=== PATIENT | male | born 1955 ===

== ENCOUNTER 2017-11-15 12:41 | Inpatient (IN) | payer OTHER, MEDICAID, SELFPAY ==
[2017-11-15] VITALS (11 sets, daily range): BP systolic 101–131; BP diastolic 69–90; PULSE 90–115; RESP 16–20; TEMP 36.7–37; O2SAT 96–98; BMI 25.8
--- NOTE | 2017-11-15 13:58 | ED.WOUNDLAC ---
HPI - Wound/Laceration <ELIAS Franco - Last Filed: 11/15/17 21:36> General Chief Complaint: Wound/Laceration Stated Complaint: STATES LESSION ON RIGHT SIDE UPPER BACK Time Seen by Provider: 11/15/17 13:42 History of Present Illness HPI narrative: 62-year-old male here for complaint of swelling and purulent drainage from his right chest wall. 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 Last episode was abscess to the chest wall was in June where he was hospitalized. He was seen by surgery with the area incised and drained by Dr. Calderon. Patient states over the last week he has noticed increased pain and swelling he is also reports having chills and fever. Positive p.o. intake. He reports started draining earlier today. He denies any trauma to the area. No other concerns or complaints at this time. Related Data Home Medications Medication Instructions Recorded Confirmed ibuprofen 200 mg PO PRN #0 10/26/16 multivitamin [Multiple Vitamins] 1 tab PO QDAY #0 10/26/16 ascorbic acid (vitamin C) PO QDAY #0 06/06/17 gabapentin 100 mg PO QDAY #0 06/06/17 gabapentin 200 mg PO BID #0 06/06/17 gabapentin [Neurontin] 400 mg PO HS #0 06/06/17 ledipasvir-sofosbuvir [Harvoni] 1 tab PO #0 06/06/17 melatonin 10 mg PO HS #0 06/06/17 Previous Rx's Medication Instructions Recorded albuterol sulfate [Proventil HFA] 2 puff INH QID #1 inh 12/21/16 amitriptyline 0 PO HS #90 tab 12/21/16 metoprolol tartrate 50 mg PO QDAY #90 tab 12/21/16 oxycodone 1 tab PO TID #90 tab 01/18/17 oxycodone 5 - 10 mg PO Q4HP PRN #40 tab 06/15/17 sulfamethoxazole-trimethoprim 1 tab PO BID #12 tab 06/15/17 Allergies Allergy/AdvReac Type Severity Reaction Status Date / Time prednisone [PREDNISONE] Allergy Severe SUICIDAL Verified 11/15/17 12:57 THOUGHTS AND SEVERE MOOD CHANGE Review of Systems <ELIAS Franco - Last Filed: 11/15/17 21:36> Constitutional Reports chills, Denies fatigue, Reports fever(s), Denies lethargy and Denies weakness Eyes Denies change in vision, Denies eye discharge, Denies irritation and Denies loss of vision ENT Ears, Nose, Mouth, and Throat: Denies change in voice, Denies neck pain and Denies sore throat Cardiovascular Denies dyspnea and Denies dyspnea on exertion Respiratory Denies cough, Denies dyspnea, Denies dyspnea on exertion and Denies wheezing Comments: Abscess to chest wall Gastrointestinal Gastrointestinal: Denies abdominal pain, Denies change in bowel habits, Denies diarrhea, Denies nausea and Denies vomiting Genitourinary Denies hematuria, Denies flank pain, Denies urinary incontinence and Denies urinary urgency Musculoskeletal Denies neck pain Integumentary/Breasts Reports furuncle Neurologic Denies confusion, Denies loss of vision and Denies weakness Psychiatric Denies anxiety, Denies confusion, Denies depression, Denies homicidal ideation and Denies suicidal ideation Endocrine Denies fatigue and Denies flushing Allergic/Immunologic Denies wheezing Exam <Chilo Arevalo [facility] - Last Filed: 11/15/17 21:36> Initial Vital Signs Initial Vital Signs: Vital Signs Temperature 98.6 F 11/15/17 12:57 Pulse Rate 115 H 11/15/17 12:57 Respiratory Rate 17 11/15/17 12:57 Blood Pressure 118/87 H 11/15/17 12:57 Pulse Oximetry 97 11/15/17 12:57 Const General: cooperative and well developed Nutritional Appearance: well nourished Orientation: alert, awake, oriented x3 and not confused [facility] Mouth: oral mucosae normal and moist mucous membranes Eyes Conjunctivae: conjunctivae normal Sclera: sclerae normal Pupils: PERRL EOM: EOM intact bilaterally Chest Other: Right chest wall with area of swelling and fluctuance to the lateral chest wall approximately nipple line approximately 20 cm x 10 cm. Small open lesion to a center of the area of swelling and drainage purulent material. Resp Effort & Inspection: normal respiratory effort, able to speak in complete sentences, no respiratory distress and no use of accessory muscles Auscultation: clear to auscultation bilaterally, no rales, no rhonchi and no wheezes Cardio Rate: regular rate Rhythm: regular rhythm Heart Sounds: no click, no gallops, no murmurs and no rubs Pulses: normal peripheral pulses Neuro General: alert, oriented x3, gait normal and no focal motor deficits Speech: speech normal <Anali Frias DO - Last Filed: 11/16/17 08:36> Initial Vital Signs Initial Vital Signs: Vital Signs Temperature 98.6 F 11/15/17 12:57 Pulse Rate 115 H 11/15/17 12:57 Respiratory Rate 17 11/15/17 12:57 Blood Pressure 118/87 H 11/15/17 12:57 Pulse Oximetry 97 11/15/17 12:57 Course <ELIAS Franco - Last Filed: 11/15/17 21:36> Orders Ordered: Acetaminophen (Tylenol) 650 mg PO Q6H PRN PRN Reason: As Needed for Fever/Mild Pain Last Admin: 11/16/17 00:48 Dose: 650 mg Enoxaparin Sodium (Lovenox) 40 mg SUBCUT DAILY [facility] Hydromorphone HCl (Dilaudid) 1 mg IV Q4HR PRN PRN Reason: Pain, Moderate (4-6) Last Admin: 11/16/17 06:57 Dose: 1 mg Admin: 11/16/17 03:11 Dose: 1 mg Admin: 11/15/17 23:05 Dose: 1 mg Sodium Chloride (Normal Saline 0.45%) 1,000 mls @ 100 mls/hr IV CONT [facility] Last Admin: 11/15/17 22:12 Dose: 100 mls/hr Vancomycin HCl/Dextrose (Vancomycin) 1,000 mg in 200 mls @ 200 mls/hr IV Q8H [facility] Last Admin: 11/16/17 01:02 Dose: 200 mls/hr Magnesium Hydroxide (Milk Of Magnesia) 30 ml PO DAILY PRN PRN Reason: Constipation Ondansetron HCl (Zofran) 4 mg IV Q8H PRN PRN Reason: Nausea And Vomiting Vancomycin HCl (Vancomycin Per Pharmacy) 1 request MISC NOW ONE Stop: 11/15/17 21:39 Discontinued Medications Hydromorphone HCl (Dilaudid) 0.5 mg IV NOW ONE Stop: 11/15/17 14:15 Last Admin: 11/15/17 14:39 Dose: 0.5 mg Hydromorphone HCl (Dilaudid) 0.5 mg IV NOW ONE Stop: 11/15/17 17:34 Last Admin: 11/15/17 17:37 Dose: 0.5 mg Sodium Chloride (Normal Saline 0.9%) 1,000 mls @ 125 mls/hr IV CONT [facility] Last Infusion: 11/15/17 19:24 Dose: 0 mls/hr Admin: 11/15/17 14:40 Dose: 125 mls/hr Vancomycin HCl 1,250 mg/ (Sodium Chloride) 250 mls @ 250 mls/hr IV NOW ONE Stop: 11/15/17 15:03 Last Infusion: 11/15/17 17:39 Dose: 0 mls/hr Admin: 11/15/17 16:02 Dose: 250 mls/hr Piperacillin/Tazobactam/Dextrose (Zosyn) 3.375 gm in 50 mls @ 100 mls/hr IV NOW ONE Stop: 11/15/17 15:31 Last Infusion: 11/15/17 15:53 Dose: 0 mls/hr Admin: 11/15/17 15:25 Dose: 100 mls/hr Sodium Chloride (Normal Saline 0.9%) 1,000 mls @ 125 mls/hr IV CONT [facility] Last Admin: 11/15/17 22:17 Dose: Ondansetron HCl (Zofran) 4 mg IV Q4HR PRN PRN Reason: Nausea And Vomiting Vital Signs - 8 hr 11/16/17 01:00 11/16/17 04:07 Temperature 97.7 F Pulse Rate 90 Respiratory Rate 17 Blood Pressure 104/63 Pulse Oximetry 96 98 <Anali Frias, - Last Filed: 11/16/17 08:36> Orders Ordered: Acetaminophen (Tylenol) 650 mg PO Q6H PRN PRN Reason: As Needed for Fever/Mild Pain Last Admin: 11/16/17 00:48 Dose: 650 mg Enoxaparin Sodium (Lovenox) 40 mg SUBCUT DAILY [facility] Hydromorphone HCl (Dilaudid) 1 mg IV Q4HR PRN PRN Reason: Pain, Moderate (4-6) Last Admin: 11/16/17 06:57 Dose: 1 mg Admin: 11/16/17 03:11 Dose: 1 mg Admin: 11/15/17 23:05 Dose: 1 mg Sodium Chloride (Normal Saline 0.45%) 1,000 mls @ 100 mls/hr IV CONT [facility] Last Admin: 11/15/17 22:12 Dose: 100 mls/hr Vancomycin HCl/Dextrose (Vancomycin) 1,000 mg in 200 mls @ 200 mls/hr IV Q8H [facility] Last Admin: 11/16/17 01:02 Dose: 200 mls/hr Magnesium Hydroxide (Milk Of Magnesia) 30 ml PO DAILY PRN PRN Reason: Constipation Ondansetron HCl (Zofran) 4 mg IV Q8H PRN PRN Reason: Nausea And Vomiting Vancomycin HCl (Vancomycin Per Pharmacy) 1 request MISC NOW ONE Stop: 11/15/17 21:39 Discontinued Medications Hydromorphone HCl (Dilaudid) 0.5 mg IV NOW ONE Stop: 11/15/17 14:15 Last Admin: 11/15/17 14:39 Dose: 0.5 mg Hydromorphone HCl (Dilaudid) 0.5 mg IV NOW ONE Stop: 11/15/17 17:34 Last Admin: 11/15/17 17:37 Dose: 0.5 mg Sodium Chloride (Normal Saline 0.9%) 1,000 mls @ 125 mls/hr IV CONT [facility] Last Infusion: 11/15/17 19:24 Dose: 0 mls/hr Admin: 11/15/17 14:40 Dose: 125 mls/hr Vancomycin HCl 1,250 mg/ (Sodium Chloride) 250 mls @ 250 mls/hr IV NOW ONE Stop: 11/15/17 15:03 Last Infusion: 11/15/17 17:39 Dose: 0 mls/hr Admin: 11/15/17 16:02 Dose: 250 mls/hr Piperacillin/Tazobactam/Dextrose (Zosyn) 3.375 gm in 50 mls @ 100 mls/hr IV NOW ONE Stop: 11/15/17 15:31 Last Infusion: 11/15/17 15:53 Dose: 0 mls/hr Admin: 11/15/17 15:25 Dose: 100 mls/hr Sodium Chloride (Normal Saline 0.9%) 1,000 mls @ 125 mls/hr IV CONT [facility] Last Admin: 11/15/17 22:17 Dose: Ondansetron HCl (Zofran) 4 mg IV Q4HR PRN PRN Reason: Nausea And Vomiting Vital Signs - 8 hr 11/16/17 01:00 11/16/17 04:07 Temperature 97.7 F Pulse Rate 90 Respiratory Rate 17 Blood Pressure 104/63 Pulse Oximetry 96 98 MDM - Wound/Laceration <ELIAS Franco - Last Filed: 11/15/17 21:36> Lab Data Result diagrams: 11/15/17 13:40 11/15/17 13:40 Lab Results 11/15/17 11/15/17 11/15/17 Range/Units 13:40 13:40 13:40 WBC 20.7 H (4.5-11.0) X10^3/uL RBC 5.31 (4.5-5.9) X10^6/uL Hgb 15.7 (13.5-17.5) g/dL Hct 45.4 (41-53) % MCV 85.5 (80-100) fL MCH 29.7 (26-34) PG MCHC 34.7 (30-36) % RDW 13.6 (11.6-14.8) % Plt Count 259 (150-400) X10^3/uL Neut % (Auto) 85.2 H (50-75) % Lymph % (Auto) 7.9 L (25-40) % Bremer % (Auto) 6.2 (3-14) % Eos % (Auto) 0.0 L (2-4) % Baso % (Auto) 0.7 (0-2) % Neut # (Auto) 17546 H (2505-7141) /uL Sodium 135 L (137-145) mmol/L Potassium 4.4 (3.4-5.1) mmol/L Chloride 98 (98-107) mmol/L Carbon Dioxide 25 (22-32) mmol/L BUN 15 (9-20) mg/dL Creatinine 0.90 (0.66-1.25) mg/dL Estimated GFR > 60.0 (>60) mL/min BUN/Creatinine Ratio 16.7 (6-22) Glucose 117 H (80-110) mg/dL Lactate (0.7-2.1) mmol/L Calcium 9.9 (8.4-10.2) mg/dL Total Bilirubin 1.0 (0.2-1.3) mg/dL Procalcitonin 0.32 (<0.5) ng/mL 11/15/17 Range/Units 13:40 WBC (4.5-11.0) X10^3/uL RBC (4.5-5.9) X10^6/uL Hgb (13.5-17.5) g/dL Hct (41-53) % MCV (80-100) fL MCH (26-34) PG MCHC (30-36) % RDW (11.6-14.8) % Plt Count (150-400) X10^3/uL Neut % (Auto) (50-75) % Lymph % (Auto) (25-40) % Bremer % (Auto) (3-14) % Eos % (Auto) (2-4) % Baso % (Auto) (0-2) % Neut # (Auto) (0667-7961) /uL Sodium (137-145) mmol/L Potassium (3.4-5.1) mmol/L Chloride (98-107) mmol/L Carbon Dioxide (22-32) mmol/L BUN (9-20) mg/dL Creatinine (0.66-1.25) mg/dL Estimated GFR (>60) mL/min BUN/Creatinine Ratio (6-22) Glucose (80-110) mg/dL Lactate 1.3 (0.7-2.1) mmol/L Calcium (8.4-10.2) mg/dL Total Bilirubin (0.2-1.3) mg/dL Procalcitonin (<0.5) ng/mL Imaging Data CT scan - chest: Radiologist's impression: PROCEDURE: CT CHEST W CON INDICATIONS: Swelling to right chest wall history of incisional abscess TECHNIQUE: After the administration of intravenous contrast, 5 mm thick sections acquired from the pulmonary apices to the posterior costophrenic angles. 7 mm thick coronal and sagittal MIP reformats were acquired. For radiation dose reduction, the following was used: automated exposure control, adjustment of mA and/or kV according to patient size. COMPARISON: [facility], US, CHEST, 06/09/2017, 11:03. [facility] Ultrasound, US, US ABDOMEN COMPLETE, 09/05/2017, 11:23. [facility], CT, THORAX WITH CONTRAST, 06/06/2017, 17:20. [facility], CT, THORAX WITH CONTRAST, 12/02/2016, 10:20. [facility], CT, THORAX WITH CONTRAST, 07/04/2013, 11:59. FINDINGS: Image quality: Diagnostic. Lungs and pleura: A small right-sided pleural effusion is identified with corresponding to pleural thickening within the posterior costophrenic angle. Cystic bronchiectasis within the right upper lobe is similar to the previous examination. There is no focal consolidation or pneumothorax. Paraseptal emphysematous changes appear to be present within the bilateral lung apices. No lung mass or definite pulmonary nodule is evident. Mediastinum: Heart size is normal. No pericardial effusion. Coronary artery atherosclerosis is present. There is an ascending thoracic aortic aneurysm identified, measuring up to approximately 4.5 cm in AP dimension (image 30, series 2), which is unchanged since 2013. The main pulmonary arterial trunk is not enlarged. No mediastinal or hilar adenopathy by size criteria. Esophagus is normal in caliber. No hiatal hernia. Bones and chest wall: Prominent enlargement and disuse heterogeneity is identified involving the right serratus anterior, inferior margin of the teres major, and inferior margin of the right latissimus dorsi muscles. Phlegmonous soft tissue changes within this region are identified that extends to the level of the skin. There appeared to be scattered small irregular loculated fluid collections within this region, which are grossly similar to the examination from 06/06/17; however, appear to be smaller in size on the current exam. No new loculated fluid collections are present. The largest loculated fluid collection measures at least 4.0 x 1 point for by 4.9 cm (image 50, series 2). No suspicious bony lesions. No vertebral body compression fractures. Compression of the 5th right rib has been resected. Postoperative changes of a the left shoulder are not well characterized. Age-appropriate degenerative changes of the spine and right shoulder are noted. No axillary or supraclavicular adenopathy by size criteria. Thyroid gland is not enlarged. Abdomen: The included portions of the upper abdomen demonstrate the liver to be somewhat hypodense when compared to the spleen. A focus of air within the gallbladder probably represents a gas containing gallstone. A mid left renal calculus is incidentally noted. Otherwise, included portions of the upper abdomen are unremarkable. IMPRESSION: 1. Complex fluid collection, suspicious for an abscess versus hematoma, along the right posterolateral thoracic wall below the tip of the scapula is overall similar to the previous examination, but noted to be smaller and more heterogeneous on the current study. Ultrasound may be helpful to evaluate for possible ultrasound-guided drainage procedure, if indicated. 2. Trace right sided pleural effusion with associated pleural thickening and atelectasis is grossly similar to the previous exam. 3. No acute cardiopulmonary process is evident. 4. Stable ascending thoracic aortic aneurysm with associated atherosclerosis. 5. Emphysematous changes within the lung apices with mild bronchiectasis is similar to the previous exam. 6. Nonobstructing left renal calculus. 7. Probable cholelithiasis. Dictated by: Rajesh Tolbert M.D. on 11/15/2017 at 13:57 Approved by: Rajesh Tolbert M.D. on 11/15/2017 at 14:16 MDM Narrative Medical decision making narrative: Elevated white count today of 20 K. Procalcitonin and lactate levels were unremarkable. CT of the chest with contrast shows loculated signs of abscess to the right thoracic wall with largest approximately 4 x 4 cm. He was placed on vancomycin and also Zosyn to cover for infection. Blood cultures and wound cultures are pending. Discussed case with surgery Dr. Calderon who recommends the patient be transferred to a facility with thoracic surgery as Dr. Calderon feels he has done all he can do for the patient at this location. Called multiple hospitals today who had no bed availability. Patient did have initial surgery lobectomy at [facility]. Discussed case with Dr. Travis at who states that they would like to see the patient however they do not have a bed available at the time and put him on the waiting list and recommends that admission for IV antibiotics until he can be accepted at [facility]. [facility]. Patient admitted to inpatient services. <Anali Frias, DO - Last Filed: 11/16/17 08:36> Lab Data Lab Results 11/15/17 11/15/17 11/15/17 Range/Units 13:40 13:40 13:40 WBC 20.7 H (4.5-11.0) X10^3/uL RBC 5.31 (4.5-5.9) X10^6/uL Hgb 15.7 (13.5-17.5) g/dL Hct 45.4 (41-53) % MCV 85.5 (80-100) fL MCH 29.7 (26-34) PG MCHC 34.7 (30-36) % RDW 13.6 (11.6-14.8) % Plt Count 259 (150-400) X10^3/uL Neut % (Auto) 85.2 H (50-75) % Lymph % (Auto) 7.9 L (25-40) % Bremer % (Auto) 6.2 (3-14) % Eos % (Auto) 0.0 L (2-4) % Baso % (Auto) 0.7 (0-2) % Neut # (Auto) 39491 H (4848-8263) /uL Sodium 135 L (137-145) mmol/L Potassium 4.4 (3.4-5.1) mmol/L Chloride 98 (98-107) mmol/L Carbon Dioxide 25 (22-32) mmol/L BUN 15 (9-20) mg/dL Creatinine 0.90 (0.66-1.25) mg/dL Estimated GFR > 60.0 (>60) mL/min BUN/Creatinine Ratio 16.7 (6-22) Glucose 117 H (80-110) mg/dL Lactate (0.7-2.1) mmol/L Calcium 9.9 (8.4-10.2) mg/dL Total Bilirubin 1.0 (0.2-1.3) mg/dL Procalcitonin 0.32 (<0.5) ng/mL 11/15/17 Range/Units 13:40 WBC (4.5-11.0) X10^3/uL RBC (4.5-5.9) X10^6/uL Hgb (13.5-17.5) g/dL Hct (41-53) % MCV (80-100) fL MCH (26-34) PG MCHC (30-36) % RDW (11.6-14.8) % Plt Count (150-400) X10^3/uL Neut % (Auto) (50-75) % Lymph % (Auto) (25-40) % Bremer % (Auto) (3-14) % Eos % (Auto) (2-4) % Baso % (Auto) (0-2) % Neut # (Auto) (2225-0885) /uL Sodium (137-145) mmol/L Potassium (3.4-5.1) mmol/L Chloride (98-107) mmol/L Carbon Dioxide (22-32) mmol/L BUN (9-20) mg/dL Creatinine (0.66-1.25) mg/dL Estimated GFR (>60) mL/min BUN/Creatinine Ratio (6-22) Glucose (80-110) mg/dL Lactate 1.3 (0.7-2.1) mmol/L Calcium (8.4-10.2) mg/dL Total Bilirubin (0.2-1.3) mg/dL Procalcitonin (<0.5) ng/mL Discharge Plan Departure Patient Disposition: Admitted As Inpatient Clinical Impression: Chest wall abscess Discharge Date/Time: 11/15/17 21:27 Interventions: ED Discharge Assessment Last Done: 11/15/17 21:27 Admit Date/Time: 11/15/17 21:07 Admit Provider: Negro Tucker <Anali Frias DO - Last Filed: 11/16/17 08:36> Cosign ED Attending Cherylature Attestation: I was immediately available in the department for consultation. Documentation has been reviewed. I agree with assessment and plan.
[2017-11-15 14:09] LABS: Add Manual Diff / Slide Review NO; Basophils Percent Auto 0.7 % (0-2); Hematocrit 45.4 % (41-53); Hemoglobin 15.7 g/dL (13.5-17.5); Lymphocytes Percent Auto 7.9 % (25-40); Mean Corpuscular HGB Conc 34.7 % (30-36); Mean Corpuscular Hemoglobin 29.7 PG (26-34); Mean Corpuscular Volume 85.5 fL (80-100); Monocytes Percent Auto 6.2 % (3-14); Neutrophils Absolute Auto 17700 /uL (3000-5900); Neutrophils Percent Auto 85.2 % (50-75); Platelet Count 259 X10^3/uL (150-400); Red Blood Cell Count 5.31 X10^6/uL (4.5-5.9); Red Cell Distribution Width 13.6 % (11.6-14.8); White Blood Cell Count 20.7 X10^3/uL (4.5-11.0)
[2017-11-15 14:12] LABS: Lactate (Lactic Acid) 1.3 mmol/L (0.7-2.1)
--- NOTE | 2017-11-15 14:12 | PC.NURSE ---
Cher I&D abscess s/p surgery from approximately 2 years ago. Pt states about clover 6 months it swells up again. Right lateral chest/armpit area pt has a surgical scar that has a small opening with yellow drainage from it. It is very swollen at the site,baseball size area of swelling.
--- NOTE | 2017-11-15 14:14 | DI.CT.S_ITS ---
PROCEDURE: CT CHEST W CON INDICATIONS: Swelling to right chest wall history of incisional abscess TECHNIQUE: After the administration of intravenous contrast, 5 mm thick sections acquired from the pulmonary apices to the posterior costophrenic angles. 7 mm thick coronal and sagittal MIP reformats were acquired. For radiation dose reduction, the following was used: automated exposure control, adjustment of mA and/or kV according to patient size. COMPARISON: [facility], US, CHEST, 06/09/2017, 11:03. [facility] Ultrasound, US, US ABDOMEN COMPLETE, 09/05/2017, 11:23. [facility], CT, THORAX WITH CONTRAST, 06/06/2017, 17:20. [facility], CT, THORAX WITH CONTRAST, 12/02/2016, 10:20. [facility], CT, THORAX WITH CONTRAST, 07/04/2013, 11:59. FINDINGS: Image quality: Diagnostic. Lungs and pleura: A small right-sided pleural effusion is identified with corresponding to pleural thickening within the posterior costophrenic angle. Cystic bronchiectasis within the right upper lobe is similar to the previous examination. There is no focal consolidation or pneumothorax. Paraseptal emphysematous changes appear to be present within the bilateral lung apices. No lung mass or definite pulmonary nodule is evident. Mediastinum: Heart size is normal. No pericardial effusion. Coronary artery atherosclerosis is present. There is an ascending thoracic aortic aneurysm identified, measuring up to approximately 4.5 cm in AP dimension (image 30, series 2), which is unchanged since 2013. The main pulmonary arterial trunk is not enlarged. No mediastinal or hilar adenopathy by size criteria. Esophagus is normal in caliber. No hiatal hernia. Bones and chest wall: Prominent enlargement and disuse heterogeneity is identified involving the right serratus anterior, inferior margin of the teres major, and inferior margin of the right latissimus dorsi muscles. Phlegmonous soft tissue changes within this region are identified that extends to the level of the skin. There appeared to be scattered small irregular loculated fluid collections within this region, which are grossly similar to the examination from 06/06/17; however, appear to be smaller in size on the current exam. No new loculated fluid collections are present. The largest loculated fluid collection measures at least 4.0 x 1 point for by 4.9 cm (image 50, series 2). No suspicious bony lesions. No vertebral body compression fractures. Compression of the 5th right rib has been resected. Postoperative changes of a the left shoulder are not well characterized. Age-appropriate degenerative changes of the spine and right shoulder are noted. No axillary or supraclavicular adenopathy by size criteria. Thyroid gland is not enlarged. Abdomen: The included portions of the upper abdomen demonstrate the liver to be somewhat hypodense when compared to the spleen. A focus of air within the gallbladder probably represents a gas containing gallstone. A mid left renal calculus is incidentally noted. Otherwise, included portions of the upper abdomen are unremarkable. IMPRESSION: 1. Complex fluid collection, suspicious for an abscess versus hematoma, along the right posterolateral thoracic wall below the tip of the scapula is overall similar to the previous examination, but noted to be smaller and more heterogeneous on the current study. Ultrasound may be helpful to evaluate for possible ultrasound-guided drainage procedure, if indicated. 2. Trace right sided pleural effusion with associated pleural thickening and atelectasis is grossly similar to the previous exam. 3. No acute cardiopulmonary process is evident. 4. Stable ascending thoracic aortic aneurysm with associated atherosclerosis. 5. Emphysematous changes within the lung apices with mild bronchiectasis is similar to the previous exam. 6. Nonobstructing left renal calculus. 7. Probable cholelithiasis. Dictated by: Rajesh Tolbert M.D. on 11/15/2017 at 13:57 Approved by: Rajesh Tolbert M.D. on 11/15/2017 at 14:16
[2017-11-15 14:19] LABS: BUN Creatinine Ratio 16.7 (6-22); Blood Urea Nitrogen 15 mg/dL (9-20); Calcium 9.9 mg/dL (8.4-10.2); Carbon Dioxide 25 mmol/L (22-32); Chloride 98 mmol/L (98-107); Estimated Glomerular Filt Rate > 60.0 mL/min (>60); Glucose 117 mg/dL (80-110); HEMOLYSIS 21 (0-50); Potassium 4.4 mmol/L (3.4-5.1); Sodium 135 mmol/L (137-145)
[2017-11-15] MEDS: HYDROMORPHONE 1 MG INJ 0.5 MG IV ×2 (14:39→17:37)
[2017-11-15] MEDS: SODIUM CHLORIDE 0.9% 1,000 ML 125 ML IV (14:40)
[2017-11-15 14:43] LABS: Procalcitonin 0.32 ng/mL (<0.5)
[2017-11-15] MEDS: PIPERACILLIN-TAZO 3.375 GM/50 ML FROZ.PIGGY IV (15:25)
--- NOTE | 2017-11-15 15:29 | ED_ITS ---
HPI - Wound/Laceration <ELIAS Franco - Last Filed: 11/15/17 21:36> General Chief Complaint: Wound/Laceration Stated Complaint: STATES LESSION ON RIGHT SIDE UPPER BACK Time Seen by Provider: 11/15/17 13:42 History of Present Illness HPI narrative: 62-year-old male here for complaint of swelling and purulent drainage from his right chest wall. 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 Last episode was abscess to the chest wall was in June where he was hospitalized. He was seen by surgery with the area incised and drained by Dr. Calderon. Patient states over the last week he has noticed increased pain and swelling he is also reports having chills and fever. Positive p.o. intake. He reports started draining earlier today. He denies any trauma to the area. No other concerns or complaints at this time. Related Data Home Medications Medication Instructions Recorded Confirmed ibuprofen 200 mg PO PRN #0 10/26/16 multivitamin [Multiple Vitamins] 1 tab PO QDAY #0 10/26/16 ascorbic acid (vitamin C) PO QDAY #0 06/06/17 gabapentin 100 mg PO QDAY #0 06/06/17 gabapentin 200 mg PO BID #0 06/06/17 gabapentin [Neurontin] 400 mg PO HS #0 06/06/17 ledipasvir-sofosbuvir [Harvoni] 1 tab PO #0 06/06/17 melatonin 10 mg PO HS #0 06/06/17 Previous Rx's Medication Instructions Recorded albuterol sulfate [Proventil HFA] 2 puff INH QID #1 inh 12/21/16 amitriptyline 0 PO HS #90 tab 12/21/16 metoprolol tartrate 50 mg PO QDAY #90 tab 12/21/16 oxycodone 1 tab PO TID #90 tab 01/18/17 oxycodone 5 - 10 mg PO Q4HP PRN #40 tab 06/15/17 sulfamethoxazole-trimethoprim 1 tab PO BID #12 tab 06/15/17 Allergies Allergy/AdvReac Type Severity Reaction Status Date / Time prednisone [PREDNISONE] Allergy Severe SUICIDAL Verified 11/15/17 12:57 THOUGHTS AND SEVERE MOOD CHANGE Review of Systems <ELIAS Franco - Last Filed: 11/15/17 21:36> Constitutional Reports chills, Denies fatigue, Reports fever(s), Denies lethargy and Denies weakness Eyes Denies change in vision, Denies eye discharge, Denies irritation and Denies loss of vision ENT Ears, Nose, Mouth, and Throat: Denies change in voice, Denies neck pain and Denies sore throat Cardiovascular Denies dyspnea and Denies dyspnea on exertion Respiratory Denies cough, Denies dyspnea, Denies dyspnea on exertion and Denies wheezing Comments: Abscess to chest wall Gastrointestinal Gastrointestinal: Denies abdominal pain, Denies change in bowel habits, Denies diarrhea, Denies nausea and Denies vomiting Genitourinary Denies hematuria, Denies flank pain, Denies urinary incontinence and Denies urinary urgency Musculoskeletal Denies neck pain Integumentary/Breasts Reports furuncle Neurologic Denies confusion, Denies loss of vision and Denies weakness Psychiatric Denies anxiety, Denies confusion, Denies depression, Denies homicidal ideation and Denies suicidal ideation Endocrine Denies fatigue and Denies flushing Allergic/Immunologic Denies wheezing Exam <Chilo Arevalo [facility] - Last Filed: 11/15/17 21:36> Initial Vital Signs Initial Vital Signs: Vital Signs Temperature 98.6 F 11/15/17 12:57 Pulse Rate 115 H 11/15/17 12:57 Respiratory Rate 17 11/15/17 12:57 Blood Pressure 118/87 H 11/15/17 12:57 Pulse Oximetry 97 11/15/17 12:57 Const General: cooperative and well developed Nutritional Appearance: well nourished Orientation: alert, awake, oriented x3 and not confused [facility] Mouth: oral mucosae normal and moist mucous membranes Eyes Conjunctivae: conjunctivae normal Sclera: sclerae normal Pupils: PERRL EOM: EOM intact bilaterally Chest Other: Right chest wall with area of swelling and fluctuance to the lateral chest wall approximately nipple line approximately 20 cm x 10 cm. Small open lesion to a center of the area of swelling and drainage purulent material. Resp Effort & Inspection: normal respiratory effort, able to speak in complete sentences, no respiratory distress and no use of accessory muscles Auscultation: clear to auscultation bilaterally, no rales, no rhonchi and no wheezes Cardio Rate: regular rate Rhythm: regular rhythm Heart Sounds: no click, no gallops, no murmurs and no rubs Pulses: normal peripheral pulses Neuro General: alert, oriented x3, gait normal and no focal motor deficits Speech: speech normal <Anali Frias DO - Last Filed: 11/16/17 08:36> Initial Vital Signs Initial Vital Signs: Vital Signs Temperature 98.6 F 11/15/17 12:57 Pulse Rate 115 H 11/15/17 12:57 Respiratory Rate 17 11/15/17 12:57 Blood Pressure 118/87 H 11/15/17 12:57 Pulse Oximetry 97 11/15/17 12:57 Course <ELIAS Franco - Last Filed: 11/15/17 21:36> Orders Ordered: Acetaminophen (Tylenol) 650 mg PO Q6H PRN PRN Reason: As Needed for Fever/Mild Pain Last Admin: 11/16/17 00:48 Dose: 650 mg Enoxaparin Sodium (Lovenox) 40 mg SUBCUT DAILY [facility] Hydromorphone HCl (Dilaudid) 1 mg IV Q4HR PRN PRN Reason: Pain, Moderate (4-6) Last Admin: 11/16/17 06:57 Dose: 1 mg Admin: 11/16/17 03:11 Dose: 1 mg Admin: 11/15/17 23:05 Dose: 1 mg Sodium Chloride (Normal Saline 0.45%) 1,000 mls @ 100 mls/hr IV CONT [facility] Last Admin: 11/15/17 22:12 Dose: 100 mls/hr Vancomycin HCl/Dextrose (Vancomycin) 1,000 mg in 200 mls @ 200 mls/hr IV Q8H [facility] Last Admin: 11/16/17 01:02 Dose: 200 mls/hr Magnesium Hydroxide (Milk Of Magnesia) 30 ml PO DAILY PRN PRN Reason: Constipation Ondansetron HCl (Zofran) 4 mg IV Q8H PRN PRN Reason: Nausea And Vomiting Vancomycin HCl (Vancomycin Per Pharmacy) 1 request MISC NOW ONE Stop: 11/15/17 21:39 Discontinued Medications Hydromorphone HCl (Dilaudid) 0.5 mg IV NOW ONE Stop: 11/15/17 14:15 Last Admin: 11/15/17 14:39 Dose: 0.5 mg Hydromorphone HCl (Dilaudid) 0.5 mg IV NOW ONE Stop: 11/15/17 17:34 Last Admin: 11/15/17 17:37 Dose: 0.5 mg Sodium Chloride (Normal Saline 0.9%) 1,000 mls @ 125 mls/hr IV CONT [facility] Last Infusion: 11/15/17 19:24 Dose: 0 mls/hr Admin: 11/15/17 14:40 Dose: 125 mls/hr Vancomycin HCl 1,250 mg/ (Sodium Chloride) 250 mls @ 250 mls/hr IV NOW ONE Stop: 11/15/17 15:03 Last Infusion: 11/15/17 17:39 Dose: 0 mls/hr Admin: 11/15/17 16:02 Dose: 250 mls/hr Piperacillin/Tazobactam/Dextrose (Zosyn) 3.375 gm in 50 mls @ 100 mls/hr IV NOW ONE Stop: 11/15/17 15:31 Last Infusion: 11/15/17 15:53 Dose: 0 mls/hr Admin: 11/15/17 15:25 Dose: 100 mls/hr Sodium Chloride (Normal Saline 0.9%) 1,000 mls @ 125 mls/hr IV CONT [facility] Last Admin: 11/15/17 22:17 Dose: Ondansetron HCl (Zofran) 4 mg IV Q4HR PRN PRN Reason: Nausea And Vomiting Vital Signs - 8 hr 11/16/17 01:00 11/16/17 04:07 Temperature 97.7 F Pulse Rate 90 Respiratory Rate 17 Blood Pressure 104/63 Pulse Oximetry 96 98 <Anali Frias, - Last Filed: 11/16/17 08:36> Orders Ordered: Acetaminophen (Tylenol) 650 mg PO Q6H PRN PRN Reason: As Needed for Fever/Mild Pain Last Admin: 11/16/17 00:48 Dose: 650 mg Enoxaparin Sodium (Lovenox) 40 mg SUBCUT DAILY [facility] Hydromorphone HCl (Dilaudid) 1 mg IV Q4HR PRN PRN Reason: Pain, Moderate (4-6) Last Admin: 11/16/17 06:57 Dose: 1 mg Admin: 11/16/17 03:11 Dose: 1 mg Admin: 11/15/17 23:05 Dose: 1 mg Sodium Chloride (Normal Saline 0.45%) 1,000 mls @ 100 mls/hr IV CONT [facility] Last Admin: 11/15/17 22:12 Dose: 100 mls/hr Vancomycin HCl/Dextrose (Vancomycin) 1,000 mg in 200 mls @ 200 mls/hr IV Q8H [facility] Last Admin: 11/16/17 01:02 Dose: 200 mls/hr Magnesium Hydroxide (Milk Of Magnesia) 30 ml PO DAILY PRN PRN Reason: Constipation Ondansetron HCl (Zofran) 4 mg IV Q8H PRN PRN Reason: Nausea And Vomiting Vancomycin HCl (Vancomycin Per Pharmacy) 1 request MISC NOW ONE Stop: 11/15/17 21:39 Discontinued Medications Hydromorphone HCl (Dilaudid) 0.5 mg IV NOW ONE Stop: 11/15/17 14:15 Last Admin: 11/15/17 14:39 Dose: 0.5 mg Hydromorphone HCl (Dilaudid) 0.5 mg IV NOW ONE Stop: 11/15/17 17:34 Last Admin: 11/15/17 17:37 Dose: 0.5 mg Sodium Chloride (Normal Saline 0.9%) 1,000 mls @ 125 mls/hr IV CONT [facility] Last Infusion: 11/15/17 19:24 Dose: 0 mls/hr Admin: 11/15/17 14:40 Dose: 125 mls/hr Vancomycin HCl 1,250 mg/ (Sodium Chloride) 250 mls @ 250 mls/hr IV NOW ONE Stop: 11/15/17 15:03 Last Infusion: 11/15/17 17:39 Dose: 0 mls/hr Admin: 11/15/17 16:02 Dose: 250 mls/hr Piperacillin/Tazobactam/Dextrose (Zosyn) 3.375 gm in 50 mls @ 100 mls/hr IV NOW ONE Stop: 11/15/17 15:31 Last Infusion: 11/15/17 15:53 Dose: 0 mls/hr Admin: 11/15/17 15:25 Dose: 100 mls/hr Sodium Chloride (Normal Saline 0.9%) 1,000 mls @ 125 mls/hr IV CONT [facility] Last Admin: 11/15/17 22:17 Dose: Ondansetron HCl (Zofran) 4 mg IV Q4HR PRN PRN Reason: Nausea And Vomiting Vital Signs - 8 hr 11/16/17 01:00 11/16/17 04:07 Temperature 97.7 F Pulse Rate 90 Respiratory Rate 17 Blood Pressure 104/63 Pulse Oximetry 96 98 MDM - Wound/Laceration <ELIAS Franco - Last Filed: 11/15/17 21:36> Lab Data Result diagrams: 11/15/17 13:40 11/15/17 13:40 Lab Results 11/15/17 11/15/17 11/15/17 Range/Units 13:40 13:40 13:40 WBC 20.7 H (4.5-11.0) X10^3/uL RBC 5.31 (4.5-5.9) X10^6/uL Hgb 15.7 (13.5-17.5) g/dL Hct 45.4 (41-53) % MCV 85.5 (80-100) fL MCH 29.7 (26-34) PG MCHC 34.7 (30-36) % RDW 13.6 (11.6-14.8) % Plt Count 259 (150-400) X10^3/uL Neut % (Auto) 85.2 H (50-75) % Lymph % (Auto) 7.9 L (25-40) % [place] % (Auto) 6.2 (3-14) % Eos % (Auto) 0.0 L (2-4) % Baso % (Auto) 0.7 (0-2) % Neut # (Auto) 26388 H (8671-5493) /uL Sodium 135 L (137-145) mmol/L Potassium 4.4 (3.4-5.1) mmol/L Chloride 98 (98-107) mmol/L Carbon Dioxide 25 (22-32) mmol/L BUN 15 (9-20) mg/dL Creatinine 0.90 (0.66-1.25) mg/dL Estimated GFR > 60.0 (>60) mL/min BUN/Creatinine Ratio 16.7 (6-22) Glucose 117 H (80-110) mg/dL Lactate (0.7-2.1) mmol/L Calcium 9.9 (8.4-10.2) mg/dL Total Bilirubin 1.0 (0.2-1.3) mg/dL Procalcitonin 0.32 (<0.5) ng/mL 11/15/17 Range/Units 13:40 WBC (4.5-11.0) X10^3/uL RBC (4.5-5.9) X10^6/uL Hgb (13.5-17.5) g/dL Hct (41-53) % MCV (80-100) fL MCH (26-34) PG MCHC (30-36) % RDW (11.6-14.8) % Plt Count (150-400) X10^3/uL Neut % (Auto) (50-75) % Lymph % (Auto) (25-40) % [place] % (Auto) (3-14) % Eos % (Auto) (2-4) % Baso % (Auto) (0-2) % Neut # (Auto) (2612-7572) /uL Sodium (137-145) mmol/L Potassium (3.4-5.1) mmol/L Chloride (98-107) mmol/L Carbon Dioxide (22-32) mmol/L BUN (9-20) mg/dL Creatinine (0.66-1.25) mg/dL Estimated GFR (>60) mL/min BUN/Creatinine Ratio (6-22) Glucose (80-110) mg/dL Lactate 1.3 (0.7-2.1) mmol/L Calcium (8.4-10.2) mg/dL Total Bilirubin (0.2-1.3) mg/dL Procalcitonin (<0.5) ng/mL Imaging Data CT scan - chest: Radiologist's impression: PROCEDURE: CT CHEST W CON INDICATIONS: Swelling to right chest wall history of incisional abscess TECHNIQUE: After the administration of intravenous contrast, 5 mm thick sections acquired from the pulmonary apices to the posterior costophrenic angles. 7 mm thick coronal and sagittal MIP reformats were acquired. For radiation dose reduction, the following was used: automated exposure control, adjustment of mA and/or kV according to patient size. COMPARISON: [facility], US, CHEST, 06/09/2017, 11:03. [facility] Ultrasound, US, US ABDOMEN COMPLETE, 09/05/2017, 11:23. [facility], CT, THORAX WITH CONTRAST, 06/06/2017, 17:20. [facility], CT, THORAX WITH CONTRAST, 2016, 10:20. [facility], CT, THORAX WITH CONTRAST, 07/04/2013, 11:59. FINDINGS: Image quality: Diagnostic. Lungs and pleura: A small right-sided pleural effusion is identified with corresponding to pleural thickening within the posterior costophrenic angle. Cystic bronchiectasis within the right upper lobe is similar to the previous examination. There is no focal consolidation or pneumothorax. Paraseptal emphysematous changes appear to be present within the bilateral lung apices. No lung mass or definite pulmonary nodule is evident. Mediastinum: Heart size is normal. No pericardial effusion. Coronary artery atherosclerosis is present. There is an ascending thoracic aortic aneurysm identified, measuring up to approximately 4.5 cm in AP dimension (image 30, series 2), which is unchanged since 2013. The main pulmonary arterial trunk is not enlarged. No mediastinal or hilar adenopathy by size criteria. Esophagus is normal in caliber. No hiatal hernia. Bones and chest wall: Prominent enlargement and disuse heterogeneity is identified involving the right serratus anterior, inferior margin of the teres major, and inferior margin of the right latissimus dorsi muscles. Phlegmonous soft tissue changes within this region are identified that extends to the level of the skin. There appeared to be scattered small irregular loculated fluid collections within this region, which are grossly similar to the examination from 06/06/17; however, appear to be smaller in size on the current exam. No new loculated fluid collections are present. The largest loculated fluid collection measures at least 4.0 x 1 point for by 4.9 cm (image 50, series 2). No suspicious bony lesions. No vertebral body compression fractures. Compression of the 5th right rib has been resected. Postoperative changes of a the left shoulder are not well characterized. Age-appropriate degenerative changes of the spine and right shoulder are noted. No axillary or supraclavicular adenopathy by size criteria. Thyroid gland is not enlarged. Abdomen: The included portions of the upper abdomen demonstrate the liver to be somewhat hypodense when compared to the spleen. A focus of air within the gallbladder probably represents a gas containing gallstone. A mid left renal calculus is incidentally noted. Otherwise, included portions of the upper abdomen are unremarkable. IMPRESSION: 1. Complex fluid collection, suspicious for an abscess versus hematoma, along the right posterolateral thoracic wall below the tip of the scapula is overall similar to the previous examination, but noted to be smaller and more heterogeneous on the current study. Ultrasound may be helpful to evaluate for possible ultrasound-guided drainage procedure, if indicated. 2. Trace right sided pleural effusion with associated pleural thickening and atelectasis is grossly similar to the previous exam. 3. No acute cardiopulmonary process is evident. 4. Stable ascending thoracic aortic aneurysm with associated atherosclerosis. 5. Emphysematous changes within the lung apices with mild bronchiectasis is similar to the previous exam. 6. Nonobstructing left renal calculus. 7. Probable cholelithiasis. Dictated by: Rajesh Tolbert M.D. on 11/15/2017 at 13:57 Approved by: Rajesh Tolbert M.D. on 11/15/2017 at 14:16 MDM Narrative Medical decision making narrative: Elevated white count today of 20 K. Procalcitonin and lactate levels were unremarkable. CT of the chest with contrast shows loculated signs of abscess to the right thoracic wall with largest approximately 4 x 4 cm. He was placed on vancomycin and also Zosyn to cover for infection. Blood cultures and wound cultures are pending. Discussed case with surgery Dr. Calderon who recommends the patient be transferred to a facility with thoracic surgery as Dr. Calderon feels he has done all he can do for the patient at this location. Called multiple hospitals today who had no bed availability. Patient did have initial surgery lobectomy at [facility]. Discussed case with Dr. Travis at who states that they would like to see the patient however they do not have a bed available at the time and put him on the waiting list and recommends that admission for IV antibiotics until he can be accepted at [facility]. Discussed case with Dr. Tucker [facility] who accepted patient. Patient admitted to inpatient services. <Anali Frias, DO - Last Filed: 11/16/17 08:36> Lab Data Lab Results 11/15/17 11/15/17 11/15/17 Range/Units 13:40 13:40 13:40 WBC 20.7 H (4.5-11.0) X10^3/uL RBC 5.31 (4.5-5.9) X10^6/uL Hgb 15.7 (13.5-17.5) g/dL Hct 45.4 (41-53) % MCV 85.5 (80-100) fL MCH 29.7 (26-34) PG MCHC 34.7 (30-36) % RDW 13.6 (11.6-14.8) % Plt Count 259 (150-400) X10^3/uL Neut % (Auto) 85.2 H (50-75) % Lymph % (Auto) 7.9 L (25-40) % [place] % (Auto) 6.2 (3-14) % Eos % (Auto) 0.0 L (2-4) % Baso % (Auto) 0.7 (0-2) % Neut # (Auto) 58203 H (4011-1431) /uL Sodium 135 L (137-145) mmol/L Potassium 4.4 (3.4-5.1) mmol/L Chloride 98 (98-107) mmol/L Carbon Dioxide 25 (22-32) mmol/L BUN 15 (9-20) mg/dL Creatinine 0.90 (0.66-1.25) mg/dL Estimated GFR > 60.0 (>60) mL/min BUN/Creatinine Ratio 16.7 (6-22) Glucose 117 H (80-110) mg/dL Lactate (0.7-2.1) mmol/L Calcium 9.9 (8.4-10.2) mg/dL Total Bilirubin 1.0 (0.2-1.3) mg/dL Procalcitonin 0.32 (<0.5) ng/mL 11/15/17 Range/Units 13:40 WBC (4.5-11.0) X10^3/uL RBC (4.5-5.9) X10^6/uL Hgb (13.5-17.5) g/dL Hct (41-53) % MCV (80-100) fL MCH (26-34) PG MCHC (30-36) % RDW (11.6-14.8) % Plt Count (150-400) X10^3/uL Neut % (Auto) (50-75) % Lymph % (Auto) (25-40) % [place] % (Auto) (3-14) % Eos % (Auto) (2-4) % Baso % (Auto) (0-2) % Neut # (Auto) (0319-4309) /uL Sodium (137-145) mmol/L Potassium (3.4-5.1) mmol/L Chloride (98-107) mmol/L Carbon Dioxide (22-32) mmol/L BUN (9-20) mg/dL Creatinine (0.66-1.25) mg/dL Estimated GFR (>60) mL/min BUN/Creatinine Ratio (6-22) Glucose (80-110) mg/dL Lactate 1.3 (0.7-2.1) mmol/L Calcium (8.4-10.2) mg/dL Total Bilirubin (0.2-1.3) mg/dL Procalcitonin (<0.5) ng/mL Discharge Plan Departure Patient Disposition: Admitted As Inpatient Clinical Impression: Chest wall abscess Discharge Date/Time: 11/15/17 21:27 Interventions: ED Discharge Assessment Last Done: 11/15/17 21:27 Admit Date/Time: 11/15/17 21:07 Admit Provider: Negro Tucker <Anali Frias DO - Last Filed: 11/16/17 08:36> Cosign ED Attending Cherylature Attestation: I was immediately available in the department for consultation. Documentation has been reviewed. I agree with assessment and plan.
--- NOTE | 2017-11-15 15:47 | PM.CN ---
History of Present Illness Date Patient Seen: 11/15/17 Time Patient Seen: 14:47 Chief complaint: STATES LESSION ON RIGHT SIDE UPPER BACK Reason for consult: Recurrent chest wall abscess Requesting provider: Chilo Arevalo Narrative: 62-year-old male well known to me from previous admission and care for multiple chest wall abscess recurrences at the site of previous right thoracotomy. He underwent extensive incision and drainage and debridement at his most recent admission in June 2017. He subsequently healed completely by secondary intention and was doing quite well at his last outpatient follow-up. However, he presents to the emergency department this afternoon with a 1-2 day history of recurrent fullness, erythema, and pain at the medial aspect of his existing right thoracotomy scar. He had spontaneous drainage of purulent fluid early this morning. Denies fever chills. No nausea or vomiting. No chest pain or shortness of breath. 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 Occasional marijuana use Meds Home Medications Medication Instructions Recorded Confirmed Type ibuprofen 200 mg PO PRN #0 10/26/16 History multivitamin [Multiple Vitamins] 1 tab PO QDAY #0 10/26/16 History albuterol sulfate [Proventil HFA] 2 puff INH QID #1 inh 12/21/16 Rx amitriptyline 0 PO HS #90 tab 12/21/16 Rx metoprolol tartrate 50 mg PO QDAY #90 tab 12/21/16 Rx oxycodone 1 tab PO TID #90 tab 01/18/17 Rx ascorbic acid (vitamin C) PO QDAY #0 06/06/17 History gabapentin 100 mg PO QDAY #0 06/06/17 History gabapentin 200 mg PO BID #0 06/06/17 History gabapentin [Neurontin] 400 mg PO HS #0 06/06/17 History ledipasvir-sofosbuvir [Harvoni] 1 tab PO #0 06/06/17 History melatonin 10 mg PO HS #0 06/06/17 History oxycodone 5 - 10 mg PO Q4HP PRN #40 tab 06/15/17 Rx sulfamethoxazole-trimethoprim 1 tab PO BID #12 tab 06/15/17 Rx Allergies Allergy/AdvReac Type Severity Reaction Status Date / Time prednisone [PREDNISONE] Allergy Severe SUICIDAL Verified 11/15/17 12:57 THOUGHTS AND SEVERE MOOD CHANGE Review of Systems Review of Systems All systems reviewed & are unremarkable except as noted in HPI and below Exam Vital Signs (past 8 hours): - 11/15/17 12:57 11/15/17 14:16 11/15/17 15:03 Temperature 98.6 F Pulse Rate 115 H 112 H 103 H Respiratory Rate 17 18 16 Blood Pressure 118/87 H Blood Pressure [Left Arm] 131/90 H 109/69 Pulse Oximetry 97 97 96 Oxygen Delivery Method Room Air Narrative Exam Narrative: Well-nourished well-developed male in no acute distress. Alert oriented x3. He is lying comfortably in the gurney in the emergency department room. Family is at bedside. Sclera nonicteric Neck supple Regular rhythm but slightly tachycardic Healed right thoracotomy scar as well as adjacent healed incision and drainage scar along the inferior chest wall. However, there is an obvious fluctuant fluid collection occupying a significant area below the skin under the medial aspect of the thoracotomy scar in the same location of his prior abscesses. Purulent drainage is present from the most medial aspect of the scar itself. Minimal erythema however. Area is tender to palpation. Abdomen is soft and nondistended but mildly obese Extremities show no clubbing, cyanosis, or edema Objective Labs Result Diagrams: 11/15/17 13:40 11/15/17 13:40 Labs: Laboratory Results - last 24 hr 11/15/17 11/15/17 11/15/17 13:40 13:40 13:40 WBC 20.7 H RBC 5.31 Hgb 15.7 Hct 45.4 MCV 85.5 MCH 29.7 MCHC 34.7 RDW 13.6 Plt Count 259 Neut % (Auto) 85.2 H Lymph % (Auto) 7.9 L [place] % (Auto) 6.2 Eos % (Auto) 0.0 L Baso % (Auto) 0.7 Neut # (Auto) 10676 H Sodium 135 L Potassium 4.4 Chloride 98 Carbon Dioxide 25 BUN 15 Creatinine 0.90 Estimated GFR > 60.0 BUN/Creatinine Ratio 16.7 Glucose 117 H Lactate Calcium 9.9 Total Bilirubin 1.0 Procalcitonin 0.32 11/15/17 13:40 WBC RBC Hgb Hct MCV MCH MCHC RDW Plt Count Neut % (Auto) Lymph % (Auto) [place] % (Auto) Eos % (Auto) Baso % (Auto) Neut # (Auto) Sodium Potassium Chloride Carbon Dioxide BUN Creatinine Estimated GFR BUN/Creatinine Ratio Glucose Lactate 1.3 Calcium Total Bilirubin Procalcitonin Assessment & Plan Plan: Assessment/Plan Narrative: 62-year-old male with multiple recurrent episodes of right chest wall abscess including yet another acute episode currently. His previous incision and drainage procedures demonstrated methicillin sensitive Staphylococcus aureus, which I suspect may very well be the issue once again. He had no evidence of AFB or fungus on final cultures in June 2017. MRI as well as CT scan of the chest showed no evidence of recurrent tumor or obvious foreign body. Nevertheless, I suspect there is some radiographically undetectable foreign body, such as a suture, along the old thoracotomy serving as a nidus of infection. I discussed this once again with the patient and his family. We have rendered all the care within the resources at this institution regarding the last 2 abscess episodes. I believe he would now require the services a cardiothoracic surgeon to render an expert opinion and potentially intervene accordingly. Patient was agreeable to such. I have discussed the case with Mr. Arevalo as well, and he will make the necessary transfer arrangements. All questions were answered to the patient's satisfaction, and he voiced understanding.
--- NOTE | 2017-11-15 15:52 | P.CONS_ITS ---
History of Present Illness Date Patient Seen: 11/15/17 Time Patient Seen: 14:47 Chief complaint: STATES LESSION ON RIGHT SIDE UPPER BACK Reason for consult: Recurrent chest wall abscess Requesting provider: Chilo Arevalo Narrative: 62-year-old male well known to me from previous admission and care for multiple chest wall abscess recurrences at the site of previous right thoracotomy. He underwent extensive incision and drainage and debridement at his most recent admission in June 2017. He subsequently healed completely by secondary intention and was doing quite well at his last outpatient follow- up. However, he presents to the emergency department this afternoon with a 1-2 day history of recurrent fullness, erythema, and pain at the medial aspect of his existing right thoracotomy scar. He had spontaneous drainage of purulent fluid early this morning. Denies fever chills. No nausea or vomiting. No chest pain or shortness of breath. 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 Occasional marijuana use Meds Home Medications Medication Instructions Recorded Confirmed Type ibuprofen 200 mg PO PRN #0 10/26/16 History multivitamin [Multiple Vitamins] 1 tab PO QDAY #0 10/26/16 History albuterol sulfate [Proventil HFA] 2 puff INH QID #1 inh 12/21/16 Rx amitriptyline 0 PO HS #90 tab 12/21/16 Rx metoprolol tartrate 50 mg PO QDAY #90 tab 12/21/16 Rx oxycodone 1 tab PO TID #90 tab 01/18/17 Rx ascorbic acid (vitamin C) PO QDAY #0 06/06/17 History gabapentin 100 mg PO QDAY #0 06/06/17 History gabapentin 200 mg PO BID #0 06/06/17 History gabapentin [Neurontin] 400 mg PO HS #0 06/06/17 History ledipasvir-sofosbuvir [Harvoni] 1 tab PO #0 06/06/17 History melatonin 10 mg PO HS #0 06/06/17 History oxycodone 5 - 10 mg PO Q4HP PRN #40 tab 06/15/17 Rx sulfamethoxazole-trimethoprim 1 tab PO BID #12 tab 06/15/17 Rx Allergies Allergy/AdvReac Type Severity Reaction Status Date / Time prednisone [PREDNISONE] Allergy Severe SUICIDAL Verified 11/15/17 12:57 THOUGHTS AND SEVERE MOOD CHANGE Review of Systems Review of Systems All systems reviewed & are unremarkable except as noted in HPI and below Exam Vital Signs (past 8 hours): - 11/15/17 12:57 11/15/17 14:16 11/15/17 15:03 Temperature 98.6 F Pulse Rate 115 H 112 H 103 H Respiratory Rate 17 18 16 Blood Pressure 118/87 H Blood Pressure [Left Arm] 131/90 H 109/69 Pulse Oximetry 97 97 96 Oxygen Delivery Method Room Air Narrative Exam Narrative: Well-nourished well-developed male in no acute distress. Alert oriented x3. He is lying comfortably in the gurney in the emergency department room. Family is at bedside. Sclera nonicteric Neck supple Regular rhythm but slightly tachycardic Healed right thoracotomy scar as well as adjacent healed incision and drainage scar along the inferior chest wall. However, there is an obvious fluctuant fluid collection occupying a significant area below the skin under the medial aspect of the thoracotomy scar in the same location of his prior abscesses. Purulent drainage is present from the most medial aspect of the scar itself. Minimal erythema however. Area is tender to palpation. Abdomen is soft and nondistended but mildly obese Extremities show no clubbing, cyanosis, or edema Objective Labs Result Diagrams: 11/15/17 13:40 11/15/17 13:40 Labs: Laboratory Results - last 24 hr 11/15/17 11/15/17 11/15/17 13:40 13:40 13:40 WBC 20.7 H RBC 5.31 Hgb 15.7 Hct 45.4 MCV 85.5 MCH 29.7 MCHC 34.7 RDW 13.6 Plt Count 259 Neut % (Auto) 85.2 H Lymph % (Auto) 7.9 L [place] % (Auto) 6.2 Eos % (Auto) 0.0 L Baso % (Auto) 0.7 Neut # (Auto) 85034 H Sodium 135 L Potassium 4.4 Chloride 98 Carbon Dioxide 25 BUN 15 Creatinine 0.90 Estimated GFR > 60.0 BUN/Creatinine Ratio 16.7 Glucose 117 H Lactate Calcium 9.9 Total Bilirubin 1.0 Procalcitonin 0.32 11/15/17 13:40 WBC RBC Hgb Hct MCV MCH MCHC RDW Plt Count Neut % (Auto) Lymph % (Auto) [place] % (Auto) Eos % (Auto) Baso % (Auto) Neut # (Auto) Sodium Potassium Chloride Carbon Dioxide BUN Creatinine Estimated GFR BUN/Creatinine Ratio Glucose Lactate 1.3 Calcium Total Bilirubin Procalcitonin Assessment & Plan Plan: Assessment/Plan Narrative: 62-year-old male with multiple recurrent episodes of right chest wall abscess including yet another acute episode currently. His previous incision and drainage procedures demonstrated methicillin sensitive Staphylococcus aureus, which I suspect may very well be the issue once again. He had no evidence of AFB or fungus on final cultures in June 2017. MRI as well as CT scan of the chest showed no evidence of recurrent tumor or obvious foreign body. Nevertheless, I suspect there is some radiographically undetectable foreign body , such as a suture, along the old thoracotomy serving as a nidus of infection. I discussed this once again with the patient and his family. We have rendered all the care within the resources at this institution regarding the last 2 abscess episodes. I believe he would now require the services a cardiothoracic surgeon to render an expert opinion and potentially intervene accordingly. Patient was agreeable to such. I have discussed the case with Mr. Arevalo as well, and he will make the necessary transfer arrangements. All questions were answered to the patient's satisfaction, and he voiced understanding.
[2017-11-15] MEDS: VANCOMYCIN 1,250 MG in SODIUM CHLORIDE 0.9% 250 ML IV (16:02)
[2017-11-15] MEDS: SODIUM CHLORIDE 0.45% 1,000 ML 100 ML IV (22:12)
--- NOTE | 2017-11-15 22:31 | PC.NURSE ---
Admit note: Patient admitted from ED to AC via WC in stable condition. Alert and oriented, independent in room. Abscess to right upper lateral dorsal golf size mass, soft, boggy, erythematous and tender to touch. 4.5 linear vertical opening draining clear serous drainage. Cleaned area with saline, and dressed to contain drainage. Non bloody. Oriented to room and environment, call light within reach .
[2017-11-15] MEDS: HYDROMORPHONE 2 MG INJ 1 MG IV (23:05)
[2017-11-16] VITALS (11 sets, daily range): BP systolic 104–139; BP diastolic 63–93; PULSE 85–90; RESP 15–18; TEMP 36.2–36.5; O2SAT 95–100
[2017-11-16] MEDS: ACETAMINOPHEN 325 MG TABLET 650 MG PO (00:48)
[2017-11-16] MEDS: VANCOMYCIN 1,000 MG/200 ML FROZ.PIGGY 200 MG IV ×2 (01:02→10:36)
[2017-11-16] MEDS: HYDROMORPHONE 2 MG INJ 1 MG IV ×2 (03:11→06:57)
--- NOTE | 2017-11-16 05:49 | PC.NURSE ---
0540:drsng was saturated with purulent drainage. cleansed site with NS and applied a new coversite drsng.
[2017-11-16] MEDS: ENOXAPARIN 40 MG/0.4 ML SYRINGE SUBCUT (10:21)
[2017-11-16] MEDS: SODIUM CHLORIDE 0.45% 1,000 ML 100 ML IV ×2 (10:36→23:57)
[2017-11-16] MEDS: HYDROMORPHONE 0.5 MG INJ 1 MG IV ×3 (11:12→19:17)
--- NOTE | 2017-11-16 12:27 | PC.NURSE ---
Pt A&O, pleasant. Wound present to rt upper lateral torso, slowly draining purulent drainage. New coversite drsg placed. Pain rated 7/10 to area and managed well with IV Dilaudid. Reports no dyspnea, RA sat 99-100%. Pt up to BR SBA. Awaiting [place] poss. [place] [facility]
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
--- NOTE | 2017-11-16 13:50 | CM.DANOTE ---
DCP/Assessment: Reviewed chart. Patient is a 62yr old male admitted to [facility] with recurrent chest wall abscess. PCP is Dr. Ignacio Lucas on [address]. Primary payor is 1)[employer] 2)Medicaid. Met with patient explained CM/SW role. Patient alert and oriented at time of visit. Patient reports that he is primarily I in ADL's. Patient resides on [address] [place] with whom he describes as with his caregiver/daughter Jess # [phone]. Patient reports that he rents trailer space on Jess's property and she assists patient with meals, and rides to/from appointments. Patient has cane at home that he uses on as needed basis. Patient reports that the only reason he does not drive is because he cannot afford insurance. Patient with h/o alcohol abuse. Patient reports that last drink was 28 days ago. Patient admits to smoking cigarettes and on occasion marijuana. Patient reports that he was told by the MD that he most likely will be transferring to hospital in [place]. Placed name/number of CM bakery team member and possible plan on white board. P: CM team to follow closely for d/c planning needs. ALINE Vitale Discharge Planning/Care Management CM Discharge Assessment Start: 11/16/17 13:41 Freq: Status: Active Protocol: Document 11/16/17 13:41 KJS (Rec: 11/16/17 13:49 KJS [id number]) Discharge Planning Assessment Assigned Drilling Supervisor ALINE/Kathy History Provided By Patient Has Patient been admitted in last 30 No days? Prior Living Arrangements House Household Members caregiver Type of transporation used prior to Relies on Others admit Independent with ADL's Yes Is patient alert and oriented? Yes DME Already Rented / Owned Cane Discharge Plan Transfer to Higher Level of Care Review Status In Process Next Review Type Continued Stay Review
[2017-11-16] MEDS: VANCOMYCIN 1,000 MG/200 ML FROZ.PIGGY 150 MG IV (16:58)
[2017-11-16] MEDS: ONDANSETRON 4 MG/2 ML INJ IV ×2 (16:58→20:57)
--- NOTE | 2017-11-16 17:11 | PM.PN.1 ---
Subjective Date Patient Seen: 11/16/17 Time Patient Seen: 17:11 Interval history: Pain unchanged but controlled with medication. No fever or chills. Continues to have a small amount of wound drainage. Exam Vital Signs (past 8 hours): - 11/16/17 13:35 11/16/17 15:10 Temperature 97.6 F 97.5 F L Pulse Rate 86 90 Respiratory Rate 16 18 Blood Pressure 126/90 H 139/93 H Pulse Oximetry 98 100 Oxygen Delivery Method Room Air Oxygen Flow Rate 0 Narrative Exam Narrative: Lying comfortably in bed in no acute distress. Alert oriented x3 Dressing is clean and intact. Underlying fluctuance remains unchanged from initial evaluation last evening in the emergency department. Objective Labs Result Diagrams: 11/15/17 13:40 11/15/17 13:40 Labs: No new laboratory studies for review Patient did have a CT scan of the chest which I have reviewed. Findings are consistent with recurrent complicated loculated abscess similar to his prior presentation in June of this year. Assessment & Plan Plan: Assessment/Plan Narrative: 62-year-old male with multiple recurrences of complicated right chest wall abscess status post thoracotomy and lung resection about 5 years ago. Etiology of recurrent abscess remains unclear. Patient certainly is not septic or showing any signs of significant progression. No evidence of intrathoracic pathology. I was actually unaware that the patient had been admitted after my initial consultation in the emergency department last evening, but he currently is awaiting a bed at the [facility] where he will be accepted by the cardiothoracic surgery service. I see no immediate indications to drain the abscess or proceed with any surgical procedures here although if his care at [facility] is significantly delayed and/or the patient begins to show signs of sepsis then we will have no choice but to proceed with basic incision and drainage. Would then plan transfer as above shortly thereafter. I discussed this with the patient in detail this evening. All questions were answered to his satisfaction, and he voiced understanding. In the interim he will continue intravenous antibiotics.
--- NOTE | 2017-11-16 17:17 | P.PN_ITS ---
Subjective Date Patient Seen: 11/16/17 Time Patient Seen: 17:11 Interval history: Pain unchanged but controlled with medication. No fever or chills. Continues to have a small amount of wound drainage. Exam Vital Signs (past 8 hours): - 11/16/17 13:35 11/16/17 15:10 Temperature 97.6 F 97.5 F L Pulse Rate 86 90 Respiratory Rate 16 18 Blood Pressure 126/90 H 139/93 H Pulse Oximetry 98 100 Oxygen Delivery Method Room Air Oxygen Flow Rate 0 Narrative Exam Narrative: Lying comfortably in bed in no acute distress. Alert oriented x3 Dressing is clean and intact. Underlying fluctuance remains unchanged from initial evaluation last evening in the emergency department. Objective Labs Result Diagrams: 11/15/17 13:40 11/15/17 13:40 Labs: No new laboratory studies for review Patient did have a CT scan of the chest which I have reviewed. Findings are consistent with recurrent complicated loculated abscess similar to his prior presentation in June of this year. Assessment & Plan Plan: Assessment/Plan Narrative: 62-year-old male with multiple recurrences of complicated right chest wall abscess status post thoracotomy and lung resection about 5 years ago. Etiology of recurrent abscess remains unclear. Patient certainly is not septic or showing any signs of significant progression. No evidence of intrathoracic pathology. I was actually unaware that the patient had been admitted after my initial consultation in the emergency department last evening, but he currently is awaiting a bed at the [facility] where he will be accepted by the cardiothoracic surgery service. I see no immediate indications to drain the abscess or proceed with any surgical procedures here although if his care at [facility] is significantly delayed and/or the patient begins to show signs of sepsis then we will have no choice but to proceed with basic incision and drainage. Would then plan transfer as above shortly thereafter. I discussed this with the patient in detail this evening. All questions were answered to his satisfaction, and he voiced understanding. In the interim he will continue intravenous antibiotics.
[2017-11-16] MEDS: AMITRIPTYLINE 25 MG TABLET 50 MG PO (22:42)
[2017-11-16] MEDS: GABAPENTIN 100 MG CAPSULE PO (22:43)
[2017-11-16] MEDS: GABAPENTIN 400 MG CAPSULE PO (22:43)
[2017-11-16] MEDS: OXYCODONE IR 5 MG TABLET PO (22:43)
[2017-11-17] VITALS (11 sets, daily range): BP systolic 138–150; BP diastolic 71–99; PULSE 74–91; RESP 16–18; TEMP 36.1–36.8; O2SAT 95–100
[2017-11-17] MEDS: VANCOMYCIN 1,000 MG/200 ML FROZ.PIGGY 200 MG IV ×2 (01:54→09:13)
[2017-11-17 02:05] LABS: Vancomycin Trough 13.6 ug/mL (10-20)
[2017-11-17 06:21] LABS: Add Manual Diff / Slide Review NO; Basophils Percent Auto 0.8 % (0-2); Eosinophils Percent Auto 2.7 % (2-4); Hematocrit 41.7 % (41-53); Hemoglobin 14.5 g/dL (13.5-17.5); Lymphocytes Percent Auto 17.9 % (25-40); Mean Corpuscular HGB Conc 34.7 % (30-36); Mean Corpuscular Hemoglobin 29.9 PG (26-34); Mean Corpuscular Volume 86.3 fL (80-100); Monocytes Percent Auto 7.4 % (3-14); Neutrophils Absolute Auto 5800 /uL (3000-5900); Neutrophils Percent Auto 71.2 % (50-75); Platelet Count 230 X10^3/uL (150-400); Red Blood Cell Count 4.83 X10^6/uL (4.5-5.9); Red Cell Distribution Width 13.6 % (11.6-14.8); White Blood Cell Count 8.1 X10^3/uL (4.5-11.0)
[2017-11-17] MEDS: ENOXAPARIN 40 MG/0.4 ML SYRINGE SUBCUT (08:00)
[2017-11-17] MEDS: OXYCODONE IR 5 MG TABLET PO ×3 (08:00→21:05)
[2017-11-17] MEDS: MULTIVITAMIN 1 TABLET 1 TAB PO (08:07)
[2017-11-17] MEDS: METOPROLOL 50 MG TABLET PO (08:07)
[2017-11-17] MEDS: ACETAMINOPHEN 325 MG TABLET 650 MG PO ×2 (10:53→21:06)
[2017-11-17] MEDS: ALBUTEROL HFA 60 PUFF/8 GM INH INH ×2 (11:01→16:49)
--- NOTE | 2017-11-17 11:53 | PC.NURSE ---
Day Shift Note Dressing changed to right flank/back. Old dressing saturated with green/yellow purulent drainage.
[2017-11-17] MEDS: ONDANSETRON 4 MG/2 ML INJ IV ×2 (12:27→16:30)
--- NOTE | 2017-11-17 13:29 | PM.PN.1 ---
Subjective Date Patient Seen: 11/17/17 Time Patient Seen: 12:00 Interval history: Patient denies fevers or chills. Exam Vital Signs (past 8 hours): - 11/17/17 07:55 11/17/17 09:29 11/17/17 11:06 Temperature 98.0 F Pulse Rate 90 74 Respiratory Rate 16 16 Blood Pressure 148/95 H Pulse Oximetry 97 100 97 Oxygen Delivery Method Room Air Oxygen Flow Rate 0 Narrative Exam Narrative: GENERAL: Middle-aged man in no acute distress. HEENT: Head normocephalic, atraumatic. Eyes pupils equal round NECK: Supple, no JVD, CHEST: Breath sounds equal bilaterally, no wheezes rales or rhonchi. There is induration on the right lateral posterior chest wall along the previous surgical scar with soft tissue swelling. The size of the induration seem to have increased in size, about 6 x 6 cm. It was tender to touch. CARDIAC: Regular rate and rhythm without murmurs, rubs or gallops. ABDOMEN: Soft, distended. bowel sounds all 4 quadrants. No localized tenderness on palpation, No guarding or rebound. EXTREMITIES: Normal range of motion, no clubbing or edema. NEUROLOGICAL: Alert and oriented; Normal muscle strength. SKIN: Warm, dry, no petechiae, Objective Labs Result Diagrams: 11/17/17 06:10 11/15/17 13:40 Labs: Laboratory Results - last 24 hr 11/17/17 11/17/17 01:13 06:10 WBC 8.1 D RBC 4.83 Hgb 14.5 Hct 41.7 MCV 86.3 MCH 29.9 MCHC 34.7 RDW 13.6 Plt Count 230 Neut % (Auto) 71.2 Lymph % (Auto) 17.9 L [place] % (Auto) 7.4 Eos % (Auto) 2.7 Baso % (Auto) 0.8 Neut # (Auto) 5800 Vancomycin Trough 13.6 Assessment & Plan Plan: Assessment/Plan Narrative: 1. Recurrent right lateral chest wall abscess: He had initial right lower lobe lobectomy about 5 years ago. He had 2 episodes of abscess in the same area within the past year. I have talked to , cardiothoracic surgeon at the [facility] on November 16, 2017. He was already accepted by the [facility] in the evening of November 15, 2017 from the emergency room. We are still waiting for bed availability. I have also contacted [facility]. I was told that they do not have a bed available either. The wound culture grew MSSA. We will discontinue vancomycin and start him on cefazolin IV. 2. Code status: Do not resuscitate
[2017-11-17] MEDS: SODIUM CHLORIDE 0.45% 1,000 ML 100 ML IV (13:47)
[2017-11-17] MEDS: CEFAZOLIN 2 GM/100 ML FROZ.PIGGY IV (16:31)
[2017-11-17] MEDS: HYDROMORPHONE 0.5 MG INJ 1 MG IV (16:32)
[2017-11-17] MEDS: GABAPENTIN 400 MG CAPSULE PO (20:37)
[2017-11-17] MEDS: AMITRIPTYLINE 25 MG TABLET 50 MG PO (20:37)
--- NOTE | 2017-11-17 20:39 | PC.NURSE ---
care assumed at 2015. pt alert and oriented. scant yellow drainage to bandage. Denies nausea. states pain tolerable and wanting to wait until 2100 for pain medication. self posistioning in bed. using call light for needs and instructed to continue to do so.
[2017-11-18] VITALS (12 sets, daily range): BP systolic 136–189; BP diastolic 88–118; PULSE 64–90; RESP 15–18; TEMP 35.9–36.9; O2SAT 96–99
[2017-11-18] MEDS: SODIUM CHLORIDE 0.45% 1,000 ML 100 ML IV (00:56)
[2017-11-18] MEDS: CEFAZOLIN 2 GM/100 ML FROZ.PIGGY IV ×3 (00:57→17:38)
[2017-11-18] MEDS: HYDROMORPHONE 1 MG INJ IV ×3 (00:58→12:33)
--- NOTE | 2017-11-18 08:21 | P.PN_ITS ---
Subjective Date Patient Seen: 11/18/17 Time Patient Seen: 08:16 Interval history: Under beknownst to me patient still not transferred to tertiary center for thoracic surgery consultation and intervention, and he remains as an inpatient here at [facility]. He is complaining of localized right chest wall pain at the site of the abscess. He continues to have some intermittent purulent drainage. Denies any subjective fever or chills. Pain is well controlled with oral analgesics at the moment. Denies shortness of breath or chest pain elsewhere. Exam Vital Signs (past 8 hours): - 11/18/17 04:00 11/18/17 04:43 Temperature 97.0 F L Pulse Rate 73 Respiratory Rate 16 Blood Pressure 152/96 H Pulse Oximetry 98 96 Oxygen Delivery Method Room Air Oxygen Flow Rate 0 Narrative Exam Narrative: Patient lying comfortably in bed in no acute distress have to receiving medications recently. Alert oriented x3 Chest clear to auscultation bilaterally Focused examination of the right lateral chest wall shows purulent drainage from the central cavity with surrounding granulation tissue along the medial aspect of his old thoracotomy scar. Some fluctuance still remains with the erythema has improved since my initial consultation of November 15, 2017. 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 This is at least his 2nd or 3rd recurrence of the abscess. Unfortunately, there is absolutely no bed availability at any to her [facility] including [facility] and [facility]. The patient continues to have evidence of abscess despite intravenous antibiotic therapy recently changed from vancomycin to Ancef yesterday. He clearly require some intervention, and we have absolutely no time frame for when he could be potentially transferred to a thoracic surgery service. I therefore believe would be prudent to proceed with incision and drainage to the best of our ability at the abscess site today. I discussed this with him in detail. Technical details were reviewed. Risks, benefits, alternatives were explained. Risks including but not limited to anesthesia, pain, bleeding, further infection, recurrent infection, poor wound healing, prolonged closure of the wound by secondary intention, and need for further intervention were explained in detail. In fact, in my opinion he would continue to potentially benefit from thoracic surgery consultation even after today's drainage procedure. I explained that the procedure today would be relatively limited, and he still may require full exploration of his thoracotomy was. Again, I explained that required the expertise of a thoracic surgeon. All questions were answered to his satisfaction, and he voiced understanding. He has been made NPO for this morning. We will proceed later today for incision and drainage. Consent was placed on the chart.
--- NOTE | 2017-11-18 08:21 | PM.PREOP ---
Pre-operative Note Interval Note Pre-op Check: Yes History & Physical Reviewed by Physician and Yes Exam Performed Changes: No H&P completed within 30 days and has changed as indicated here:: Patient once again seen and examined today. Notice placed on the chart. His original consultation note as well as his history and physical examination from November 15, 2000 remain unchanged. Proceed with right chest wall incision and drainage today.
[2017-11-18] MEDS: ACETAMINOPHEN 325 MG TABLET 650 MG PO (08:28)
[2017-11-18] MEDS: METOPROLOL 50 MG TABLET PO (08:28)
[2017-11-18] MEDS: OXYCODONE IR 5 MG TABLET PO ×3 (08:35→20:45)
[2017-11-18] MEDS: GABAPENTIN 100 MG CAPSULE PO (08:35)
[2017-11-18] MEDS: SODIUM CHLORIDE 0.9% 1,000 ML 100 ML IV ×2 (08:40→20:23)
--- NOTE | 2017-11-18 09:59 | P.PN_ITS ---
Subjective Date Patient Seen: 11/18/17 Time Patient Seen: 09:57 Interval history: No new complaints today Exam Vital Signs (past 8 hours): - 11/18/17 04:00 11/18/17 04:43 11/18/17 08:00 Temperature 97.0 F L 98.5 F Pulse Rate 73 88 Respiratory Rate 16 16 Blood Pressure 152/96 H 136/101 H Pulse Oximetry 98 96 99 Oxygen Delivery Method Room Air Oxygen Flow Rate 0 Narrative Exam Narrative: Resting comfortably in no acute distress HEENT exam unremarkable Lungs clear to auscultation there is induration on the right lateral posterior chest wall along the previous surgical scar with soft tissue swelling 6 x 6 cm tender to touch Heart regular rhythm Abdomen soft nontender Extremities no edema Neuro exam awake alert no focal deficits Skin warm and dry Objective Labs Result Diagrams: 11/17/17 06:10 11/15/17 13:40 Assessment & Plan Plan: Assessment/Plan Narrative: 1. Recurrent right lateral chest wall abscess: He had initial right lower lobe lobectomy about 5 years ago. He had 2 episodes of abscess in the same area within the past year. I have talked to , cardiothoracic surgeon at the [facility] on November 16, 2017. He was already accepted by the [facility] in the evening of November 15, 2017 from the emergency room. We are still waiting for bed availability. I have also contacted [facility]. I was told that they do not have a bed available either. The wound culture grew MSSA. We will discontinue vancomycin and start him on cefazolin IV. Our surgeon here Dr. Calderon will be taking the patient to surgery today to do what he can to drain the abscess but he still needs definitive treatment at the [facility] and we are awaiting transfer when a bed is available 2. Code status: Do not resuscitate
[2017-11-18] MEDS: ALBUTEROL HFA 60 PUFF/8 GM INH INH ×3 (10:10→20:47)
--- NOTE | 2017-11-18 14:43 | DI.MRI.S_ITS ---
PROCEDURE: MR HEAD/BRAIN WO/W CON INDICATIONS: GOODWIN, vagal response TECHNIQUE: Noncontrast axial T1 spin echo, axial T2 fast spin echo, sagittal and axial FLAIR, coronal T2 fast spin echo, axial gradient echo, axial diffusion and ADC through the brain. After the administration of contrast, axial and coronal T1 spin echo with fat saturation through the brain. COMPARISON: [facility], MR, BRAIN W&WO CONTRAST, 08/03/2016, 9:59. FINDINGS: Image quality: Excellent. CSF spaces: Basal cisterns are patent. No extra-axial fluid collections. Ventricles are normal in size and shape. Brain: No midline shift. No intracranial bleeds or masses. No abnormal intracranial enhancement. There is cerebral volume loss for age. There is periventricular white matter chronic small vessel ischemic change. The brainstem appears normal. Diffusion-weighted images demonstrate no acute ischemic insults. No chronic ischemic insults. Normal intravascular flow voids are present. Skull and face: Calvarial marrow is normal in signal. Orbits appear normal. There are multiple areas of T2 hyperintensity, partially visualized within the parotid gland, left greater than right. These were present on prior study but appear more prominent and numerous. Sinuses: Sinuses demonstrate minimal sinus mucosal thickening. IMPRESSION: 1. No acute intracranial process. 2. Moderate atrophy and chronic microvascular ischemic changes. 3. Increased hyperintensities, partially visualized within the parotid gland. These could represent small cysts. As noted they are not completely included within the [id number]. Further evaluation with CT neck with contrast may be obtained on the basis as clinically indicated for additional evaluation. The above findings were conveyed to the patient's nurse Shannan DE LOS SANTOS, on 11/18/17 at 5 PM. Dictated by: Vicenta Panda M.D. on 11/18/2017 at 16:54 Approved by: Vicenta Panda M.D. on 11/18/2017 at 17:01
--- NOTE | 2017-11-18 14:59 | PC.NURSE ---
day shift- pt c/o GOODWIN this AM and also pain in R chest wall from abscess. discussed with Dr Calderon and ok to give pt PO meds with a few sips of water as MD is planning on taking pt to OR to drain abscess this afternoon. Pt states he thinks GOODWIN is from lack of caffeine but pt is NPO. Pt was to go to surgery and OR team picked him up around 1240. Prior to going downstairs, pt stated he was in pain. Medicated with 1mg IV dilaudid which pt has had many times previously. on the way downstairs pt had episode where he attempted to vomit, eyes rolled back in his head, tongue stuck out and pt became profusely diaphoretic, pt also lost conciousness briefly. returned to room in bed. BP elevated however this has been his baseline. Notified Dr Calderon and Dr Boudreaux and surgery cancelled. Pt moved to room 206 to have better visual observation. notified by ICU around 1430 that HR dropped down into the 40's. BP was 189/118. Pt was vomiting when HR dropped. Notified Dr Tucker and MRI of brain ordered. MRI screening form filled out and transferred to MRI around 1515.
[2017-11-18] MEDS: ONDANSETRON 4 MG/2 ML INJ IV ×2 (16:01→20:23)
[2017-11-18] MEDS: AMITRIPTYLINE 25 MG TABLET 50 MG PO (20:45)
[2017-11-18] MEDS: GABAPENTIN 400 MG CAPSULE PO (20:45)
[2017-11-19] MEDS: CEFAZOLIN 2 GM/100 ML FROZ.PIGGY IV ×2 (01:37→08:48)
[2017-11-19 02:03] VITALS: O2SAT 98
[2017-11-19 04:15] VITALS: BP 123/86; PULSE 92; RESP 16; TEMP 36.7; O2SAT 96
[2017-11-19] MEDS: SODIUM CHLORIDE 0.9% 1,000 ML 100 ML IV (07:26)
[2017-11-19 07:45] VITALS: O2SAT 97
[2017-11-19 08:00] VITALS: BP 150/85; PULSE 79; RESP 18; TEMP 36.5; O2SAT 97
[2017-11-19] MEDS: ALBUTEROL HFA 60 PUFF/8 GM INH INH (08:40)
[2017-11-19] MEDS: ENOXAPARIN 40 MG/0.4 ML SYRINGE SUBCUT (08:42)
[2017-11-19] MEDS: GABAPENTIN 100 MG CAPSULE PO (08:42)
[2017-11-19 08:43] VITALS: O2SAT 99
[2017-11-19] MEDS: METOPROLOL 50 MG TABLET PO (08:43)
[2017-11-19] MEDS: MULTIVITAMIN 1 TABLET 1 TAB PO (08:43)
[2017-11-19] MEDS: OXYCODONE IR 5 MG TABLET PO ×2 (08:48→14:16)
--- NOTE | 2017-11-19 11:26 | PM.DS.1 ---
History of Present Illness Date Patient Seen: 11/19/17 Time Patient Seen: 11:26 Chief complaint: STATES LESSION ON RIGHT SIDE UPPER BACK Narrative: Narrative: 62-year-old man who had right lower lobe lobectomy for non-small cell lung cancer at [facility] about 4-5 years ago. In the past year, he has been having recurrent cellulitis and abscess near the previous surgical site. He had I and D by Dr. Cohen last year. He also had a recurrence in June of this year and had a repeat I and D by Dr. Calderon. Previous wound culture grew MSSA. He started noticing soft tissue lump about 2 weeks ago. He denies fevers or chills. He does have local tenderness. He was seen at the [facility] and was told to come to the [facility] Emergency Room. His white blood cell count was noticed to be 20,000. Chest CT also suggests possible abscess along the right posterior lateral thoracic wall. He was admitted to the medicine floor for medical management before he is able to be transfer to outside facility where cardiothoracic surgeons are available. Discharge Providers Date of admission: 11/15/17 21:07 Consults: 11/15/17 20:52 Consult to Physician Routine Comment: Consulting Provider: Negro Tucker Reason for consultation: Garrett Has provider been notified: Yes 11/18/17 07:45 Consult to General Surgery Routine Comment: Consulting Provider: Negro Calderon Reason for consultation: chest wall abscess Has provider been notified: Yes Discharge provider: Negro Tucker MD Summary Discharge Diagnosis: One. Recurrent right lateral chest wall abscess 2. Possible seizure Hospital Course: Patient was admitted here to [place] hospital because there were no beds available at the [facility] where he needed to go. He has had this recurrent chest wall abscess that has failed conservative in and local management and is referred back to his original cardiothoracic surgeon at the [facility]. They accepted the patient but did not then not have beds available so we have been treating him here with IV antibiotics while they are awaiting the patient to be transferred. He has been on cephazolin he has methicillin Staph sensitive Staph aureus growing out of the abscess. The patient has been very stable to the currently he is up walking around in the halls vitals have been stable. He was scheduled yesterday to be taken to the OR for incision and drainage of the abscess by our local surgeon. The patient was on his way down to the OR on the stretcher when he had what the nurses thought was a possible seizure. His eyes rolled up he was briefly unresponsive and then taken back to his room where he was immediately awake and vitals were stable. Because of his history of cancer we did an MRI of the brain looking for metastases or other causes and the MRI was read as normal. The patient had received some Dilaudid just prior to this episode. However, he is also being getting Dilaudid periodic Kristen off and on through the whole hospitalization so does not seem like it was an allergic reaction but may be just the affected of the Dilaudid that caused this to happen to him. Nonetheless he is stable at this time refer transfer Status at Discharge Functional status at discharge: independent ambulation Overall status at discharge: patient is not back to baseline Time Spent with Patient Greater than 30 minutes Exam Vital Signs (past 8 hours): - 11/19/17 04:15 11/19/17 08:00 11/19/17 08:43 Temperature 98.1 F 97.7 F Pulse Rate 92 H 79 Respiratory Rate 16 18 Blood Pressure 123/86 H 150/85 H Pulse Oximetry 96 97 99 Oxygen Delivery Method Room Air Oxygen Flow Rate 0 Objective Labs Result Diagrams: 11/17/17 06:10 11/15/17 13:40 Discharge Plan Discharge Plan Patient Disposition: [facility] Other facility: [facility] Discharge comment: Transfer to [facility] cardiothoracic service Discharge Med Rec/Prescriptions Discharge Orders: Discharge (Order); Ordered 11/19/17 Ordered By: Negro Tucker Discharge Health Status Multidrug resistant organism: No MDRO MDRO Verified by culture: Yes Date verified: 11/19/17 Precautions: [place] Provider Discharge Instructions Diet: Diet as Tolerated Liquid consistency: Normal/Thin Food texture: Regular Discharge Data Attending Provider: Negro Tucker Admit Date/Time: 11/15/17 21:07
--- NOTE | 2017-11-19 11:30 | P.DS_ITS ---
History of Present Illness Date Patient Seen: 11/19/17 Time Patient Seen: 11:26 Chief complaint: STATES LESSION ON RIGHT SIDE UPPER BACK Narrative: Narrative: 62-year-old man who had right lower lobe lobectomy for non -small cell lung cancer at [facility] about 4-5 years ago. In the past year, he has been having recurrent cellulitis and abscess near the previous surgical site. He had I and D by Dr. Cohen last year. He also had a recurrence in June of this year and had a repeat I and D by Dr. Calderon. Previous wound culture grew MSSA. He started noticing soft tissue lump about 2 weeks ago. He denies fevers or chills. He does have local tenderness. He was seen at the [facility] and was told to come to the [facility] Emergency Room. His white blood cell count was noticed to be 20,000. Chest CT also suggests possible abscess along the right posterior lateral thoracic wall. He was admitted to the medicine floor for medical management before he is able to be transfer to outside facility where cardiothoracic surgeons are available. Discharge Providers Date of admission: 11/15/17 21:07 Consults: 11/15/17 20:52 Consult to Physician Routine Comment: Consulting Provider: Negro Tucker Reason for consultation: Garrett Has provider been notified: Yes 11/18/17 07:45 Consult to General Surgery Routine Comment: Consulting Provider: Negro Calderon Reason for consultation: chest wall abscess Has provider been notified: Yes Discharge provider: Negro Tucker MD Summary Discharge Diagnosis: One. Recurrent right lateral chest wall abscess 2. Possible seizure Hospital Course: Patient was admitted [place] to [place] hospital because there were no beds available at the [facility] where he needed to go. He has had this recurrent chest wall abscess that has failed conservative in and local management and is referred back to his original cardiothoracic surgeon at the [facility]. They accepted the patient but did not then not have beds available so we have been treating him here with IV antibiotics while they are awaiting the patient to be transferred. He has been on cephazolin he has methicillin Staph sensitive Staph aureus growing out of the abscess. The patient has been very stable to the currently he is up walking around in the halls vitals have been stable. He was scheduled yesterday to be taken to the OR for incision and drainage of the abscess by our local surgeon. The patient was on his way down to the OR on the stretcher when he had what the nurses thought was a possible seizure. His eyes rolled up he was briefly unresponsive and then taken back to his room where he was immediately awake and vitals were stable. Because of his history of cancer we did an MRI of the brain looking for metastases or other causes and the MRI was read as normal. The patient had received some Dilaudid just prior to this episode. However, he is also being getting Dilaudid periodic Kristen off and on through the whole hospitalization so does not seem like it was an allergic reaction but may be just the affected of the Dilaudid that caused this to happen to him. Nonetheless he is stable at this time refer transfer Status at Discharge Functional status at discharge: independent ambulation Overall status at discharge: patient is not back to baseline Time Spent with Patient Greater than 30 minutes Exam Vital Signs (past 8 hours): - 11/19/17 04:15 11/19/17 08:00 11/19/17 08:43 Temperature 98.1 F 97.7 F Pulse Rate 92 H 79 Respiratory Rate 16 18 Blood Pressure 123/86 H 150/85 H Pulse Oximetry 96 97 99 Oxygen Delivery Method Room Air Oxygen Flow Rate 0 Objective Labs Result Diagrams: 11/17/17 06:10 11/15/17 13:40 Discharge Plan Discharge Plan Patient Disposition: [facility] Other facility: [facility] Discharge comment: Transfer to [facility] cardiothoracic service Discharge Med Rec/Prescriptions Discharge Orders: Discharge (Order); Ordered 11/19/17 Ordered By: Negro Tucker Discharge Health Status Multidrug resistant organism: No MDRO MDRO Verified by culture: Yes Date verified: 11/19/17 Precautions: [place] Provider Discharge Instructions Diet: Diet as Tolerated Liquid consistency: Normal/Thin Food texture: Regular Discharge Data Attending Provider: Negro Tucker Admit Date/Time: 11/15/17 21:07
[2017-11-19 11:56] LABS: Alanine Aminotransferase 25 IU/L (21-72); Albumin 4.6 g/dL (3.5-5.0); Albumin Globulin Ratio 1.3 (1.0-2.8); Alkaline Phosphatase 119 U/L (38-126); Aspartate Aminotransferase 30 IU/L (17-59); Bilirubin Total 0.7 mg/dL (0.2-1.3); Blood Urea Nitrogen 12 mg/dL (9-20); Calcium 9.6 mg/dL (8.4-10.2); Carbon Dioxide 28 mmol/L (22-32); Chloride 100 mmol/L (98-107); Estimated Glomerular Filt Rate > 60.0 mL/min (>60); Globulin 3.6 g/dL (1.7-4.1); Glucose 116 mg/dL (80-110); HEMOLYSIS < 15 (0-50); Potassium 4.9 mmol/L (3.4-5.1); Sodium 139 mmol/L (137-145); Total Protein 8.2 g/dL (6.3-8.2)
[2017-11-19 12:03] LABS: Add Manual Diff / Slide Review NO; Basophils Percent Auto 0.5 % (0-2); Hematocrit 45.9 % (41-53); Hemoglobin 15.9 g/dL (13.5-17.5); Lymphocytes Percent Auto 17.8 % (25-40); Mean Corpuscular HGB Conc 34.6 % (30-36); Mean Corpuscular Hemoglobin 29.6 PG (26-34); Mean Corpuscular Volume 85.6 fL (80-100); Neutrophils Absolute Auto 7500 /uL (3000-5900); Neutrophils Percent Auto 73.7 % (50-75); Platelet Count 305 X10^3/uL (150-400); Red Blood Cell Count 5.37 X10^6/uL (4.5-5.9); Red Cell Distribution Width 13.1 % (11.6-14.8); White Blood Cell Count 10.2 X10^3/uL (4.5-11.0)
[2017-11-19] MEDS: ONDANSETRON 4 MG/2 ML INJ IV (12:21)
[2017-11-19 13:00] VITALS: BP 137/92; PULSE 74; RESP 20; TEMP 36.6; O2SAT 98
--- NOTE | 2017-11-19 13:58 | PC.NURSE ---
Addendum entered by Deb Miles R.N. 11/19/17 15:29: Transfered at 1420. Dressing to rt scapula area changed prior to d/c and pt has thick grn drainage with foul odor. Po pain meds also given early. Zofran given earlier effective for nausea. Report called to diane DE LOS SANTOS at [facility]. Reviewed hospital course. Pt transfered to [facility] via bl[facility] transport. Original Note: Pending transfer: Bed available for pt at [facility]. Pt aware. Kimberley - pt's friend notified per pt request of transfer. Pt denies any problems. Cont w/poc.
--- NOTE | 2017-11-19 15:08 | CM.DPC ---
DC Note: Pt will trnsf to [facility] today, bed has become available. Pt aware and agreeable, family updated. VALERIE
== END 2017-11-19 14:30 | disposition short-term general hospital (02) | DRG 721 ==
LOC: ED 21:07 → AC 21:08
PROVIDERS: Emergency Medicine; Internal Medicine; Surgery; Admitting Provider Internal Medicine; Emergency Provider Nurse Practitioner Family; Visit Provider Internal Medicine
DX: T81.4XXA Infection following a procedure, initial encounter (principal); L02.213 Cutaneous abscess of chest wall; Y83.8 Other surgical procedures as the cause of abnormal reaction of the patient, or of later complication, without mention of misadventure at the time of the procedure; Z66 Do not resuscitate; Z85.118 Personal history of other malignant neoplasm of bronchus and lung; B95.61 Methicillin susceptible Staphylococcus aureus infection as the cause of diseases classified elsewhere; R56.9 Unspecified convulsions
CPT/HCPCS: 36415; 36591; 70553; 71260; 80048; 80053; 80202; 82247; 83605; 84145; 85025; 87040; 87070; 87075; 87077; 87147; 87186; 87205; 94640; 96361; 96365; 96375; 96376; 99285; 99406; A9579; J0690; J1170; J1650; J2405; J2543; J3370; J7050; Q9967

== ENCOUNTER 2017-11-27 19:41 | Emergency (ER) | payer OTHER, MEDICAID, SELFPAY ==
[2017-11-15 21:49] VITALS: BMI 25.8
[2017-11-27 19:45] VITALS: BP 119/82; PULSE 90; RESP 20; TEMP 36.7; O2SAT 99; BMI 25.4
--- NOTE | 2017-11-27 21:11 | DI.RAD.S_ITS ---
PROCEDURE: XR CHEST 2V INDICATIONS: right sided drain placement for abscess TECHNIQUE: 2 views of the chest were acquired. COMPARISON: [facility], CT, CT CHEST W CON, 11/15/2017, 14:40. [facility], CR, CHEST 2 VIEW, 11/11/2013, 14:37. FINDINGS: Surgical changes and devices: Partially visualized left shoulder arthroplasty is present. Tubing is noted overlying the right lateral aspect of the hemithorax. Lungs and pleura: There is an overall appearance of increased pulmonary vascularity. Mediastinum: Mediastinal contours are normal. Heart size is normal. Bones and chest wall: No suspicious bony abnormalities. Soft tissues appear unremarkable. IMPRESSION: 1. Mild increased pulmonary vascularity suggestive of edema. 2. Tubing is noted along the right hemithorax appearing to be external to the lung. Given history, this could represent a drain. Recommend correlation to site of original placement. Dictated by: Vicenta Panda M.D. on 11/27/2017 at 21:49 Approved by: Vicenta Panda M.D. on 11/27/2017 at 21:55
[2017-11-27 21:20] VITALS: BP 120/85; PULSE 86; RESP 18; O2SAT 98
[2017-11-27] MEDS: OXYCODONE/ACETAMINOPHEN 5/325 TABLET 2 TAB PO (21:40)
[2017-11-27 21:50] LABS: Add Manual Diff / Slide Review NO; Eosinophils Percent Auto 2.2 % (2-4); Hematocrit 38.9 % (41-53); Lymphocytes Percent Auto 16.8 % (25-40); Mean Corpuscular HGB Conc 33.5 % (30-36); Mean Corpuscular Hemoglobin 29.1 PG (26-34); Mean Corpuscular Volume 86.7 fL (80-100); Monocytes Percent Auto 5.9 % (3-14); Neutrophils Absolute Auto 11500 /uL (3000-5900); Neutrophils Percent Auto 74.1 % (50-75); Platelet Count 352 X10^3/uL (150-400); Red Blood Cell Count 4.49 X10^6/uL (4.5-5.9); Red Cell Distribution Width 13.8 % (11.6-14.8); White Blood Cell Count 15.5 X10^3/uL (4.5-11.0)
[2017-11-27 22:02] LABS: Alanine Aminotransferase 20 IU/L (21-72); Albumin Globulin Ratio 1.1 (1.0-2.8); Alkaline Phosphatase 87 U/L (38-126); Aspartate Aminotransferase 23 IU/L (17-59); BUN Creatinine Ratio 12.2 (6-22); Bilirubin Total 0.3 mg/dL (0.2-1.3); Blood Urea Nitrogen 11 mg/dL (9-20); Calcium 9.3 mg/dL (8.4-10.2); Carbon Dioxide 30 mmol/L (22-32); Chloride 100 mmol/L (98-107); Estimated Glomerular Filt Rate > 60.0 mL/min (>60); Globulin 3.6 g/dL (1.7-4.1); Glucose 100 mg/dL (80-110); HEMOLYSIS < 15 (0-50); Potassium 4.1 mmol/L (3.4-5.1); Sodium 141 mmol/L (137-145); Total Protein 7.6 g/dL (6.3-8.2)
--- NOTE | 2017-11-27 22:10 | PC.NURSE ---
surgical inscision for JUSTINO placment, no external drainage from site. JUSTINO dran 5ml. pt reports having the JUSTINO drained several times and cannot recall amount or frequency of draining JUSTINO. reddend area from justino site on right posterior chest that wraps around right side to umbilicus region.
[2017-11-27 22:21] LABS: Lactate (Lactic Acid) 1.2 mmol/L (0.7-2.1)
--- NOTE | 2017-11-27 22:28 | PC.NURSE ---
pt requesting morphine or other IV pain meds man. provider notified. provider stated she has already had a conversation with pt about medicaitons.
[2017-11-27 22:48] VITALS: BP 109/88; PULSE 89; RESP 18; O2SAT 98
[2017-11-27] MEDS: VANCOMYCIN 1,250 MG in SODIUM CHLORIDE 0.9% 250 ML IV (23:10)
[2017-11-27] MEDS: MORPHINE 5 MG/ML INJ 4 MG IV (23:12)
--- NOTE | 2017-11-27 23:25 | ED.SKABFB ---
HPI - Skin/Abscess/Foreign Bdy General Chief complaint: Skin/Abscess/Foreign Body Stated complaint: INFECTED RIGHT SIDE AFTER SURGERY Time Seen by Provider: 11/27/17 20:52 Source: patient, RN notes reviewed and old records reviewed Mode of arrival: ambulatory Limitations: no limitations History of Present Illness HPI narrative: Patient is a 62-year-old male who presents with all rash on his right side. He has a recurring incisional abscess. He was admitted in transfer to the [facility] last week where he underwent surgery incision and drainage and had a drain placed in the area. He was discharged 5 days ago. Yesterday it started to notice some redness which has spread significantly today. It is now covering his whole right side and wrapping around his abdomen. He has not had fever or chills. He does have some increased pain and discomfort around the drain. He has packing at the surgical site which they have been changing daily. He was not discharged on antibiotics. He denies any chest pain or shortness of breath MD complaint: rash Related Data Home Medications Medication Instructions Recorded Confirmed ibuprofen 200 mg PO Q6H PRN #0 10/26/16 11/17/17 multivitamin [Multiple Vitamins] 1 tab PO QDAY #0 10/26/16 11/17/17 ascorbic acid (vitamin C) 500 mg PO QDAY #0 06/06/17 11/17/17 gabapentin 200 mg PO BID #0 06/06/17 11/17/17 gabapentin [Neurontin] 400 mg PO HS #0 06/06/17 11/17/17 ledipasvir-sofosbuvir [Harvoni] 1 tab PO DAILY #0 06/06/17 11/17/17 melatonin 10 mg PO HS #0 06/06/17 11/17/17 amitriptyline 50 mg PO HS 11/17/17 11/28/17 Previous Rx's Medication Instructions Recorded albuterol sulfate [Proventil HFA] 2 puff INH QID #1 inh 12/21/16 metoprolol tartrate 50 mg PO QDAY #90 tab 12/21/16 oxycodone 1 tab PO TID #90 tab 01/18/17 oxycodone 5 - 10 mg PO Q4HP PRN #40 tab 06/15/17 sulfamethoxazole-trimethoprim 1 tab PO BID #12 tab 06/15/17 Allergies Allergy/AdvReac Type Severity Reaction Status Date / Time prednisone [PREDNISONE] Allergy Severe SUICIDAL Verified 11/15/17 12:57 THOUGHTS AND SEVERE MOOD CHANGE Review of Systems Review of Systems All systems reviewed & are unremarkable except as noted in HPI and below Constitutional Denies body ache(s), Denies chills, Denies fatigue and Denies fever(s) Eyes Denies change in vision, Denies eye discharge, Denies irritation and Denies loss of vision Cardiovascular Denies chest pain, Denies irregular heart rhythm, Denies lightheadedness, Denies palpitations, Denies dyspnea, Denies dyspnea on exertion and Denies orthopnea Respiratory Denies cough, Denies dyspnea, Denies dyspnea on exertion and Denies wheezing Gastrointestinal Gastrointestinal: Denies abdominal pain, Denies change in bowel habits, Denies diarrhea, Denies nausea and Denies vomiting Musculoskeletal Denies back pain, Denies muscle weakness, Denies numbness and Denies tingling Integumentary/Breasts Reports as per HPI Neurologic Denies loss of vision, Denies numbness and Denies tingling Endocrine Denies fatigue and Denies palpitations Allergic/Immunologic Denies wheezing [facility] Medical History Abscess of chest wall (Acute) Cancer of right lung (Acute) Chronic back pain (Acute) Depression (Acute) Gastroesophageal reflux disease (Acute) Hepatitis C (Acute) History of alcoholism (Acute) Osteoarthritis (Acute) Surgical History History of incision and drainage (Acute) History of left shoulder replacement (Acute) History of lobectomy of lung (Acute) Social History household members: caregiver Smoking Status: Former smoker alcohol intake: former Exam Initial Vital Signs Initial Vital Signs: Vital Signs Temperature 98.0 F 11/27/17 19:45 Pulse Rate 90 11/27/17 19:45 Respiratory Rate 20 11/27/17 19:45 Blood Pressure 119/82 H 11/27/17 19:45 Pulse Oximetry 99 11/27/17 19:45 Const General: cooperative Orientation: alert, awake and oriented x3 HENMT Head: normal to inspection and normocephalic Eyes General: appearance normal, both eyes and all related structures Pupils: PERRL EOM: EOM intact bilaterally Neck Neck: normal visual inspection, full ROM and no meningeal signs Chest Chest: other ( Slightly tender to touch no induration) Other: Right rib incision site is noted with packing minimal erythema around that site without drainage. Drain in place with mild amount of drainage. Just inferior to the site is another incisional site which is slightly erythematous and actually does have a mild amount of gross pus. Slightly tender to touch no induration. Also blanchable erythema extends all along the right flank and around to the abdomen. No petechiae. No vesicles or bulla. Course Orders Ordered: ED Orders 11/27/17 21:11 XR chest 2V Stat 11/27/17 21:41 Complete Blood Count AUTO DIFF Stat Comprehensive Metabolic Panel Stat Procalcitonin Stat 11/27/17 22:00 Blood Culture Stat Lactate (Lactic Acid) Stat 11/28/17 00:18 CT chest abd pel w con Stat 11/28/17 00:35 Wound Culture and Gram Stain Stat Discontinued Medications Vancomycin HCl 1,250 mg/ (Sodium Chloride) 250 mls @ 250 mls/hr IV NOW ONE Stop: 11/27/17 21:57 Last Infusion: 11/28/17 00:36 Dose: 0 mls/hr Admin: 11/27/17 23:10 Dose: 250 mls/hr Piperacillin/Tazobactam/Dextrose (Zosyn) 3.375 gm in 50 mls @ 100 mls/hr IV NOW ONE Stop: 11/28/17 00:47 Last Infusion: 11/28/17 02:23 Dose: 0 mls/hr Admin: 11/28/17 01:05 Dose: 100 mls/hr Morphine Sulfate (Morphine Sulfate) 4 mg IV NOW ONE Stop: 11/27/17 23:08 Last Admin: 11/27/17 23:12 Dose: 4 mg Morphine Sulfate (Morphine) 4 mg IV NOW ONE Stop: 11/28/17 01:56 Last Admin: 11/28/17 02:31 Dose: 4 mg Oxycodone/Acetaminophen (Percocet 5/325) 2 tab PO NOW ONE Stop: 11/27/17 21:15 Last Admin: 11/27/17 21:40 Dose: 2 tab Consultations Consultation #1: Dr. Mccoy, CVT at [facility], is familiar with case and has been updated on symptoms and current test results. At this time recommends IV vancomycin and Zosyn and recommends a CT. Does not seem like surgical intervention needed at this time would recommend treating conservatively with antibiotics and monitoring. Time: 00:20 Consultation #2: Dr. Tucker, hospitalist does not think patient requires admission. Recommend transferring to [facility]. Time: 01:05 Consultation #3: Dr. Mccoy graciously accepts. A CT has been put Time: 01:30 Vital Signs - 8 hr 11/27/17 19:45 11/27/17 21:20 11/27/17 22:48 Temperature 98.0 F Pulse Rate 90 86 89 Respiratory Rate 20 18 18 Blood Pressure 119/82 H Blood Pressure [Left Arm] 120/85 H 109/88 H Pulse Oximetry 99 98 98 11/28/17 00:16 11/28/17 02:01 11/28/17 03:04 Temperature 97.5 F L Pulse Rate 80 81 Respiratory Rate 18 Blood Pressure Blood Pressure [Left Arm] 123/84 H 122/91 H 128/96 H Pulse Oximetry 98 100 MDM - Skin/Abscess/Foreign Bdy Lab Data Result diagrams: 11/27/17 21:41 11/27/17 21:41 Lab Results 11/27/17 11/27/17 11/27/17 Range/Units 21:41 21:41 21:41 WBC 15.5 H (4.5-11.0) X10^3/uL RBC 4.49 L (4.5-5.9) X10^6/uL Hgb 13.0 L (13.5-17.5) g/dL Hct 38.9 L (41-53) % MCV 86.7 (80-100) fL MCH 29.1 (26-34) PG MCHC 33.5 (30-36) % RDW 13.8 (11.6-14.8) % Plt Count 352 (150-400) X10^3/uL Neut % (Auto) 74.1 (50-75) % Lymph % (Auto) 16.8 L (25-40) % Wheeler % (Auto) 5.9 (3-14) % Eos % (Auto) 2.2 (2-4) % Baso % (Auto) 1.0 (0-2) % Neut # (Auto) 77128 H (6345-4633) /uL Sodium 141 (137-145) mmol/L Potassium 4.1 (3.4-5.1) mmol/L Chloride 100 (98-107) mmol/L Carbon Dioxide 30 (22-32) mmol/L BUN 11 (9-20) mg/dL Creatinine 0.90 (0.66-1.25) mg/dL Estimated GFR > 60.0 (>60) mL/min BUN/Creatinine Ratio 12.2 (6-22) Glucose 100 (80-110) mg/dL Lactate (0.7-2.1) mmol/L Calcium 9.3 (8.4-10.2) mg/dL Total Bilirubin 0.3 (0.2-1.3) mg/dL AST 23 (17-59) IU/L ALT 20 L (21-72) IU/L Alkaline Phosphatase 87 (38-126) U/L Total Protein 7.6 (6.3-8.2) g/dL Albumin 4.0 (3.5-5.0) g/dL Globulin 3.6 (1.7-4.1) g/dL Albumin/Globulin Ratio 1.1 (1.0-2.8) Procalcitonin 0.10 (<0.5) ng/mL 11/27/17 Range/Units 22:00 WBC (4.5-11.0) X10^3/uL RBC (4.5-5.9) X10^6/uL Hgb (13.5-17.5) g/dL Hct (41-53) % MCV (80-100) fL MCH (26-34) PG MCHC (30-36) % RDW (11.6-14.8) % Plt Count (150-400) X10^3/uL Neut % (Auto) (50-75) % Lymph % (Auto) (25-40) % Wheeler % (Auto) (3-14) % Eos % (Auto) (2-4) % Baso % (Auto) (0-2) % Neut # (Auto) (2079-1837) /uL Sodium (137-145) mmol/L Potassium (3.4-5.1) mmol/L Chloride (98-107) mmol/L Carbon Dioxide (22-32) mmol/L BUN (9-20) mg/dL Creatinine (0.66-1.25) mg/dL Estimated GFR (>60) mL/min BUN/Creatinine Ratio (6-22) Glucose (80-110) mg/dL Lactate 1.2 (0.7-2.1) mmol/L Calcium (8.4-10.2) mg/dL Total Bilirubin (0.2-1.3) mg/dL AST (17-59) IU/L ALT (21-72) IU/L Alkaline Phosphatase (38-126) U/L Total Protein (6.3-8.2) g/dL Albumin (3.5-5.0) g/dL Globulin (1.7-4.1) g/dL Albumin/Globulin Ratio (1.0-2.8) Procalcitonin (<0.5) ng/mL Imaging Data Chest x-ray: Radiologist's impression: PROCEDURE: XR CHEST 2V INDICATIONS: right sided drain placement for abscess TECHNIQUE: 2 views of the chest were acquired. COMPARISON: [facility], CT, CT CHEST W CON, 11/15/2017, 14:40. [facility], CR, CHEST 2 VIEW, 11/11/2013, 14:37. FINDINGS: Surgical changes and devices: Partially visualized left shoulder arthroplasty is present. Tubing is noted overlying the right lateral aspect of the hemithorax. Lungs and pleura: There is an overall appearance of increased pulmonary vascularity. Mediastinum: Mediastinal contours are normal. Heart size is normal. Bones and chest wall: No suspicious bony abnormalities. Soft tissues appear unremarkable. IMPRESSION: 1. Mild increased pulmonary vascularity suggestive of edema. 2. Tubing is noted along the right hemithorax appearing to be external to the lung. Given history, this could represent a drain. Recommend correlation to site of original placement. Dictated by: Vicenta Panda M.D. on 11/27/2017 at 21:49 CT chest/ab/pelvis: Radiologist's impression: shift superintendent report: I drainage catch the daughter is noted in the right chest wall. Soft tissue defect is noted in the subcutaneous soft tissue consistent with postsurgical changes. There is a decrease in the soft tissue swelling in the region of the right chest. No enlarging fluid collections are identified. Cholelithiasis findings of constipation. Distended bladder. Left nephrolithiasis. Bilateral renal cyst MDM Narrative Medical decision making narrative: The patient has elevation of WBC. Previously normal and is now 15,000. Lactic acid is normal. Vital signs normal does not appear septic or toxic. Wound culture from the draining site is sent and pending. Patient transferred to [facility] for further management. Discharge Plan Departure Patient Disposition: [facility] Clinical Impression: Cellulitis and abscess of trunk Prescriptions: No Action multivitamin [Multiple Vitamins] 1 EACH tablet 1 tab PO QDAY Qty: 0 RF: 0 ibuprofen 200 MG capsule 200 mg PO Q6H PRN (Reason: Pain (Scale Score 1-3)) Qty: 0 RF: 0 metoprolol tartrate 50 MG tablet 50 mg PO QDAY Qty: 90 RF: 1 albuterol sulfate [Proventil HFA] 90 MCG/PUFF HFA aerosol inhaler 2 puff INH QID Qty: 1 RF: 5 oxycodone 5 MG tablet 1 tab PO TID Qty: 90 RF: 0 ascorbic acid (vitamin C) 500 mg Tablet 500 mg PO QDAY Qty: 0 RF: 0 melatonin 10 MG capsule 10 mg PO HS Qty: 0 RF: 0 ledipasvir-sofosbuvir [Harvoni] 90 MG/400 MG tablet 1 tab PO DAILY Qty: 0 RF: 0 gabapentin 100 MG capsule 200 mg PO BID Qty: 0 RF: 0 gabapentin [Neurontin] 400 MG capsule 400 mg PO HS Qty: 0 RF: 0 oxycodone 5 MG tablet 5 - 10 mg PO Q4HP PRNQty: 40 RF: 0 sulfamethoxazole-trimethoprim 800 MG/160 MG tablet 1 tab PO BID Qty: 12 RF: 0 amitriptyline 50 MG tablet 50 mg PO HS RF: 0
[2017-11-28 00:16] VITALS: BP 123/84; PULSE 80; O2SAT 98
--- NOTE | 2017-11-28 00:18 | DI.CT.S_ITS ---
PROCEDURE: CT CHEST ABD PEL W CON INDICATIONS: right sided chest reoccuring abscess/cellulitis TECHNIQUE: After the administration of intravenous contrast, 5 mm thick sections acquired from the lung apices to the symphysis. 5 mm coronal and sagittal reformats were performed, with additional 7 mm MIP reformats through the lungs. For radiation dose reduction, the following was used: automated exposure control, adjustment of mA and/or kV according to patient size. COMPARISON: [facility], CT, BIOPSY LUNG, 08/15/2013, 10:27. [facility], CT, THORAX WITH CONTRAST, 07/04/2013, 11:59. [facility], CT, THORAX WITH CONTRAST, 06/06/2017, 17:20. [facility], CT, CT CHEST W CON, 11/15/2017, 14:40. FINDINGS: Image quality: Excellent. CHEST: Lungs and pleura: No acute airspace opacities, and the chronic cystic distortion with mild cylindrical bronchiectasis previously identified at the right upper lobe is stable over time without evidence of mass lesion or active infection at this time. 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 Partial pneumonectomy on the right presumably has been performed. No pleural effusions or pneumothorax. Central and peripheral airways appear patent and normal in caliber. Mediastinum: Heart size is normal. No pericardial effusion. No mediastinal or hilar adenopathy by size criteria. Thoracic aorta and central pulmonary arteries are normal in size. Esophagus is normal in caliber. No hiatal hernia. Chest wall: No axillary or supraclavicular adenopathy by size criteria. A region of surgical drainage along the right lateral chest wall including debridement to the skin surface is noted. Surgical drains in this area also are present extending to the outer margin of the intercostal space mid chest level. Thyroid gland appears normal where well visualized. ABDOMEN: Solid organs: Liver is normal in size and enhancement. Gallbladder shows no evidence of active inflammation. A small radiodensity is present at the dependent margin of the gallbladder lumen, measuring approximately 4 mm, likely a gallstone that is not calcified. Biliary system is non dilated. Pancreas enhances normally. Spleen is normal in size and enhancement. No adrenal nodules. Kidneys demonstrate normal size and enhancement, without hydronephrosis. There is a nonobstructive anterior mid left kidney calyceal calculus measuring 2 x 3 mm. Peritoneum and bowel: Bowel loops demonstrate normal wall thickness and caliber. No free fluid or air. Nodes and vessels: No retroperitoneal or mesenteric adenopathy by size criteria. Aorta and inferior vena cava are normal in size. Miscellaneous: No ventral hernias. PELVIS: Genitourinary: Bladder wall thickness is normal. Miscellaneous: No inguinal hernias or adenopathy. Bones: No suspicious bony lesions. No vertebral body compression fractures. IMPRESSION: Debridement of a region of phlegmon and abscess formation right lateral chest wall with surgical drains and open debridement to the skin surface. No retained abscess found. The patient has a prior history of resected squamous cell carcinoma, and the right hemithorax is relatively small when compared to the left. Recurrent neoplasm within the lung parenchyma or mediastinum is not found. Chronic lung scarring right upper lobe with both cystic change and cylindrical mild focal bronchiectasis. No active infection in this area is currently suspected. Within the abdomen note is made of what appears to be a small 4 mm gallstone laying dependently within the gallbladder lumen. Incidental note made of a punctate 2 x 3 mm calcification mid renal calyx on the left. Dictated by: Raymond Zamora M.D. on 11/28/2017 at 10:36 Approved by: Raymond Zamora M.D. on 11/28/2017 at 10:45
--- NOTE | 2017-11-28 00:20 | ED_ITS ---
HPI - Skin/Abscess/Foreign Bdy General Chief complaint: Skin/Abscess/Foreign Body Stated complaint: INFECTED RIGHT SIDE AFTER SURGERY Time Seen by Provider: 11/27/17 20:52 Source: patient, RN notes reviewed and old records reviewed Mode of arrival: ambulatory Limitations: no limitations History of Present Illness HPI narrative: Patient is a 62-year-old male who presents with all rash on his right side. He has a recurring incisional abscess. He was admitted in transfer to the [facility] last week where he underwent surgery incision and drainage and had a drain placed in the area. He was discharged 5 days ago. Yesterday it started to notice some redness which has spread significantly today. It is now covering his whole right side and wrapping around his abdomen. He has not had fever or chills. He does have some increased pain and discomfort around the drain. He has packing at the surgical site which they have been changing daily. He was not discharged on antibiotics. He denies any chest pain or shortness of breath MD complaint: rash Related Data Home Medications Medication Instructions Recorded Confirmed ibuprofen 200 mg PO Q6H PRN #0 10/26/16 11/17/17 multivitamin [Multiple Vitamins] 1 tab PO QDAY #0 10/26/16 11/17/17 ascorbic acid (vitamin C) 500 mg PO QDAY #0 06/06/17 11/17/17 gabapentin 200 mg PO BID #0 06/06/17 11/17/17 gabapentin [Neurontin] 400 mg PO HS #0 06/06/17 11/17/17 ledipasvir-sofosbuvir [Harvoni] 1 tab PO DAILY #0 06/06/17 11/17/17 melatonin 10 mg PO HS #0 06/06/17 11/17/17 amitriptyline 50 mg PO HS 11/17/17 11/28/17 Previous Rx's Medication Instructions Recorded albuterol sulfate [Proventil HFA] 2 puff INH QID #1 inh 12/21/16 metoprolol tartrate 50 mg PO QDAY #90 tab 12/21/16 oxycodone 1 tab PO TID #90 tab 01/18/17 oxycodone 5 - 10 mg PO Q4HP PRN #40 tab 06/15/17 sulfamethoxazole-trimethoprim 1 tab PO BID #12 tab 06/15/17 Allergies Allergy/AdvReac Type Severity Reaction Status Date / Time prednisone [PREDNISONE] Allergy Severe SUICIDAL Verified 11/15/17 12:57 THOUGHTS AND SEVERE MOOD CHANGE Review of Systems Review of Systems All systems reviewed & are unremarkable except as noted in HPI and below Constitutional Denies body ache(s), Denies chills, Denies fatigue and Denies fever(s) Eyes Denies change in vision, Denies eye discharge, Denies irritation and Denies loss of vision Cardiovascular Denies chest pain, Denies irregular heart rhythm, Denies lightheadedness, Denies palpitations, Denies dyspnea, Denies dyspnea on exertion and Denies orthopnea Respiratory Denies cough, Denies dyspnea, Denies dyspnea on exertion and Denies wheezing Gastrointestinal Gastrointestinal: Denies abdominal pain, Denies change in bowel habits, Denies diarrhea, Denies nausea and Denies vomiting Musculoskeletal Denies back pain, Denies muscle weakness, Denies numbness and Denies tingling Integumentary/Breasts Reports as per HPI Neurologic Denies loss of vision, Denies numbness and Denies tingling Endocrine Denies fatigue and Denies palpitations Allergic/Immunologic Denies wheezing FORMERLY [facility], [facility] Medical History Abscess of chest wall (Acute) Cancer of right lung (Acute) Chronic back pain (Acute) Depression (Acute) Gastroesophageal reflux disease (Acute) Hepatitis C (Acute) History of alcoholism (Acute) Osteoarthritis (Acute) Surgical History History of incision and drainage (Acute) History of left shoulder replacement (Acute) History of lobectomy of lung (Acute) Social History household members: caregiver Smoking Status: Former smoker alcohol intake: former Exam Initial Vital Signs Initial Vital Signs: Vital Signs Temperature 98.0 F 11/27/17 19:45 Pulse Rate 90 11/27/17 19:45 Respiratory Rate 20 11/27/17 19:45 Blood Pressure 119/82 H 11/27/17 19:45 Pulse Oximetry 99 11/27/17 19:45 Const General: cooperative Orientation: alert, awake and oriented x3 HENMT Head: normal to inspection and normocephalic Eyes General: appearance normal, both eyes and all related structures Pupils: PERRL EOM: EOM intact bilaterally Neck Neck: normal visual inspection, full ROM and no meningeal signs Chest Chest: other ( Slightly tender to touch no induration) Other: Right rib incision site is noted with packing minimal erythema around that site without drainage. Drain in place with mild amount of drainage. Just inferior to the site is another incisional site which is slightly erythematous and actually does have a mild amount of gross pus. Slightly tender to touch no induration. Also blanchable erythema extends all along the right flank and around to the abdomen. No petechiae. No vesicles or bulla. Course Orders Ordered: ED Orders 11/27/17 21:11 XR chest 2V Stat 11/27/17 21:41 Complete Blood Count AUTO DIFF Stat Comprehensive Metabolic Panel Stat Procalcitonin Stat 11/27/17 22:00 Blood Culture Stat Lactate (Lactic Acid) Stat 11/28/17 00:18 CT chest abd pel w con Stat 11/28/17 00:35 Wound Culture and Gram Stain Stat Discontinued Medications Vancomycin HCl 1,250 mg/ (Sodium Chloride) 250 mls @ 250 mls/hr IV NOW ONE Stop: 11/27/17 21:57 Last Infusion: 11/28/17 00:36 Dose: 0 mls/hr Admin: 11/27/17 23:10 Dose: 250 mls/hr Piperacillin/Tazobactam/Dextrose (Zosyn) 3.375 gm in 50 mls @ 100 mls/hr IV NOW ONE Stop: 11/28/17 00:47 Last Infusion: 11/28/17 02:23 Dose: 0 mls/hr Admin: 11/28/17 01:05 Dose: 100 mls/hr Morphine Sulfate (Morphine Sulfate) 4 mg IV NOW ONE Stop: 11/27/17 23:08 Last Admin: 11/27/17 23:12 Dose: 4 mg Morphine Sulfate (Morphine) 4 mg IV NOW ONE Stop: 11/28/17 01:56 Last Admin: 11/28/17 02:31 Dose: 4 mg Oxycodone/Acetaminophen (Percocet 5/325) 2 tab PO NOW ONE Stop: 11/27/17 21:15 Last Admin: 11/27/17 21:40 Dose: 2 tab Consultations Consultation #1: Dr. Mccoy, CVT at [facility], is familiar with case and has been updated on symptoms and current test results. At this time recommends IV vancomycin and Zosyn and recommends a CT. Does not seem like surgical intervention needed at this time would recommend treating conservatively with antibiotics and monitoring. Time: 00:20 Consultation #2: Dr. Tucker, hospitalist does not think patient requires admission. Recommend transferring to [facility]. Time: 01:05 Consultation #3: Dr. Mccoy graciously accepts. A CT has been put Time: 01:30 Vital Signs - 8 hr 11/27/17 19:45 11/27/17 21:20 11/27/17 22:48 Temperature 98.0 F Pulse Rate 90 86 89 Respiratory Rate 20 18 18 Blood Pressure 119/82 H Blood Pressure [Left Arm] 120/85 H 109/88 H Pulse Oximetry 99 98 98 11/28/17 00:16 11/28/17 02:01 11/28/17 03:04 Temperature 97.5 F L Pulse Rate 80 81 Respiratory Rate 18 Blood Pressure Blood Pressure [Left Arm] 123/84 H 122/91 H 128/96 H Pulse Oximetry 98 100 MDM - Skin/Abscess/Foreign Bdy Lab Data Result diagrams: 11/27/17 21:41 11/27/17 21:41 Lab Results 11/27/17 11/27/17 11/27/17 Range/Units 21:41 21:41 21:41 WBC 15.5 H (4.5-11.0) X10^3/uL RBC 4.49 L (4.5-5.9) X10^6/uL Hgb 13.0 L (13.5-17.5) g/dL Hct 38.9 L (41-53) % MCV 86.7 (80-100) fL MCH 29.1 (26-34) PG MCHC 33.5 (30-36) % RDW 13.8 (11.6-14.8) % Plt Count 352 (150-400) X10^3/uL Neut % (Auto) 74.1 (50-75) % Lymph % (Auto) 16.8 L (25-40) % [place] % (Auto) 5.9 (3-14) % Eos % (Auto) 2.2 (2-4) % Baso % (Auto) 1.0 (0-2) % Neut # (Auto) 97420 H (7403-7257) /uL Sodium 141 (137-145) mmol/L Potassium 4.1 (3.4-5.1) mmol/L Chloride 100 (98-107) mmol/L Carbon Dioxide 30 (22-32) mmol/L BUN 11 (9-20) mg/dL Creatinine 0.90 (0.66-1.25) mg/dL Estimated GFR > 60.0 (>60) mL/min BUN/Creatinine Ratio 12.2 (6-22) Glucose 100 (80-110) mg/dL Lactate (0.7-2.1) mmol/L Calcium 9.3 (8.4-10.2) mg/dL Total Bilirubin 0.3 (0.2-1.3) mg/dL AST 23 (17-59) IU/L ALT 20 L (21-72) IU/L Alkaline Phosphatase 87 (38-126) U/L Total Protein 7.6 (6.3-8.2) g/dL Albumin 4.0 (3.5-5.0) g/dL Globulin 3.6 (1.7-4.1) g/dL Albumin/Globulin Ratio 1.1 (1.0-2.8) Procalcitonin 0.10 (<0.5) ng/mL 11/27/17 Range/Units 22:00 WBC (4.5-11.0) X10^3/uL RBC (4.5-5.9) X10^6/uL Hgb (13.5-17.5) g/dL Hct (41-53) % MCV (80-100) fL MCH (26-34) PG MCHC (30-36) % RDW (11.6-14.8) % Plt Count (150-400) X10^3/uL Neut % (Auto) (50-75) % Lymph % (Auto) (25-40) % [place] % (Auto) (3-14) % Eos % (Auto) (2-4) % Baso % (Auto) (0-2) % Neut # (Auto) (2410-6247) /uL Sodium (137-145) mmol/L Potassium (3.4-5.1) mmol/L Chloride (98-107) mmol/L Carbon Dioxide (22-32) mmol/L BUN (9-20) mg/dL Creatinine (0.66-1.25) mg/dL Estimated GFR (>60) mL/min BUN/Creatinine Ratio (6-22) Glucose (80-110) mg/dL Lactate 1.2 (0.7-2.1) mmol/L Calcium (8.4-10.2) mg/dL Total Bilirubin (0.2-1.3) mg/dL AST (17-59) IU/L ALT (21-72) IU/L Alkaline Phosphatase (38-126) U/L Total Protein (6.3-8.2) g/dL Albumin (3.5-5.0) g/dL Globulin (1.7-4.1) g/dL Albumin/Globulin Ratio (1.0-2.8) Procalcitonin (<0.5) ng/mL Imaging Data Chest x-ray: Radiologist's impression: PROCEDURE: XR CHEST 2V INDICATIONS: right sided drain placement for abscess TECHNIQUE: 2 views of the chest were acquired. COMPARISON: [facility], CT, CT CHEST W CON, 11/15/2017, 14:40. [facility], CR, CHEST 2 VIEW, 11/11/2013, 14:37. FINDINGS: Surgical changes and devices: Partially visualized left shoulder arthroplasty is present. Tubing is noted overlying the right lateral aspect of the hemithorax. Lungs and pleura: There is an overall appearance of increased pulmonary vascularity. Mediastinum: Mediastinal contours are normal. Heart size is normal. Bones and chest wall: No suspicious bony abnormalities. Soft tissues appear unremarkable. IMPRESSION: 1. Mild increased pulmonary vascularity suggestive of edema. 2. Tubing is noted along the right hemithorax appearing to be external to the lung. Given history, this could represent a drain. Recommend correlation to site of original placement. Dictated by: Vicenta Panda M.D. 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 Soft tissue defect is noted in the subcutaneous soft tissue consistent with postsurgical changes. There is a decrease in the soft tissue swelling in the region of the right chest. No enlarging fluid collections are identified. Cholelithiasis findings of constipation. Distended bladder. Left nephrolithiasis. Bilateral renal cyst MDM Narrative Medical decision making narrative: The patient has elevation of WBC. Previously normal and is now 15,000. Lactic acid is normal. Vital signs normal does not appear septic or toxic. Wound culture from the draining site is sent and pending. Patient transferred to [facility] for further management. Discharge Plan Departure Patient Disposition: [facility] Clinical Impression: Cellulitis and abscess of trunk Prescriptions: No Action multivitamin [Multiple Vitamins] 1 EACH tablet 1 tab PO QDAY Qty: 0 RF: 0 ibuprofen 200 MG capsule 200 mg PO Q6H PRN (Reason: Pain (Scale Score 1-3)) Qty: 0 RF: 0 metoprolol tartrate 50 MG tablet 50 mg PO QDAY Qty: 90 RF: 1 albuterol sulfate [Proventil HFA] 90 MCG/PUFF HFA aerosol inhaler 2 puff INH QID Qty: 1 RF: 5 oxycodone 5 MG tablet 1 tab PO TID Qty: 90 RF: 0 ascorbic acid (vitamin C) 500 mg Tablet 500 mg PO QDAY Qty: 0 RF: 0 melatonin 10 MG capsule 10 mg PO HS Qty: 0 RF: 0 ledipasvir-sofosbuvir [Harvoni] 90 MG/400 MG tablet 1 tab PO DAILY Qty: 0 RF: 0 gabapentin 100 MG capsule 200 mg PO BID Qty: 0 RF: 0 gabapentin [Neurontin] 400 MG capsule 400 mg PO HS Qty: 0 RF: 0 oxycodone 5 MG tablet 5 - 10 mg PO Q4HP PRNQty: 40 RF: 0 sulfamethoxazole-trimethoprim 800 MG/160 MG tablet 1 tab PO BID Qty: 12 RF: 0 amitriptyline 50 MG tablet 50 mg PO HS RF: 0
[2017-11-28] MEDS: PIPERACILLIN-TAZO 3.375 GM/50 ML FROZ.PIGGY IV (01:05)
[2017-11-28 02:01] VITALS: BP 122/91
[2017-11-28] MEDS: MORPHINE 4 MG/ML INJ IV (02:31)
[2017-11-28 03:04] VITALS: BP 128/96; PULSE 81; RESP 18; TEMP 36.4; O2SAT 100
--- NOTE | 2017-11-28 03:17 | PC.NURSE ---
0000-- Pt c/o itching pain to right surgical and drain sites. Dressing taken down to reveal surgical wound with greer and packing. Small draining abcess noted inferiorly to surgical wound. Brown purulent drainage noted to sheets. Dr Frias at bedside to express more drainage abd obtain wound culture. Abd pad applied and secured with paper tape.
== END 2017-11-28 03:50 | disposition short-term general hospital (02) ==
PROVIDERS: Emergency Provider Emergency Medicine
DX: L03.319 Cellulitis of trunk, unspecified (principal); L02.219 Cutaneous abscess of trunk, unspecified
CPT/HCPCS: 36415; 36591; 71046; 71260; 74177; 80053; 83605; 84145; 85025; 87040; 87070; 87075; 87077; 87147; 87186; 87205; 96365; 96366; 96375; 96376; 99283; 99284; J2270; J2543; Q9967

== ENCOUNTER → 2018-08-09 10:40 | Outpatient (CLI) | payer OTHER, MEDICAID, SELFPAY ==
[2017-11-15 21:49] VITALS: BMI 25.8
--- NOTE | 2018-08-09 | DI.US.S_ITS ---
PROCEDURE: US ABDOMEN COMPLETE INDICATIONS: Other cirrhosis of liver TECHNIQUE: Real-time scanning was performed of the abdominal and retroperitoneal organs, with image documentation. COMPARISON: [facility], CT, CT CHEST ABD PEL W CON, 11/28/2017, 0:19. [facility], US, US ABDOMEN COMPLETE, 09/05/2017, 11:23. FINDINGS: Liver: Liver is diffusely increased in echogenicity. No focal hepatic abnormalities identified. Normal hepatic size. Gallbladder: Gallbladder is mildly contracted and there is a 7 mm echogenic focus which may represent a small gallstone. Gallbladder wall upper limits of normal thickness measuring 3.0 mm. In Biliary ducts: Intrahepatic bile ducts are non-dilated. Extrahepatic bile duct caliber measures 4.0 mm. Normal is 6-7 mm or less in diameter, or 10 mm or less post-cholecystectomy. Pancreas: Visualized portions of the pancreas are sonographically normal. Spleen: Spleen is normal in size and homogeneous in echotexture. Kidneys: Kidneys are normal in size and echotexture. Right kidney measures 12.2 cm long; left kidney measures 11.2 cm long. No hydronephrosis or nephrolithiasis. No solid masses. Bilateral renal cysts, largest on the left measuring 2.8 cm. Aorta: Visualized aorta is normal in caliber at less than 3 cm. Iliacs: Proximal common iliac arteries are normal in caliber at less than 2.5 cm. IVC: Intrahepatic inferior vena cava is patent. Miscellaneous: No free abdominal fluid. Possible fat containing ventral wall hernia is present. IMPRESSION: 1. Increased hepatic echogenicity noted possibly related to hepatic steatosis but other sources of hepatocellular disease including hepatic cirrhosis cannot be excluded. Recommend clinical correlation. 2. Mildly contracted gallbladder and possible 7 mm gallstone. If indicated repeat limited gallbladder ultrasound could be performed after the patient has been fasting between 8 and 10 hours. 3. Possible fat containing ventral wall hernias. If indicated CT could be performed. Dictated by: Javier PRABHAKAR Interpreted: Yola Stoddard MD on 08/09/2018 at 13:03 Approved by: Yola Stoddard MD, PhD on 08/09/2018 at 15:32
[2018-08-09 12:32] LABS: Add Manual Diff / Slide Review NO; Basophils Absolute Auto 100 /uL (0-100); Basophils Percent Auto 0.7 % (0-2); Eosinophils Absolute Auto 200 /uL (0-450); Eosinophils Percent Auto 2.7 % (2-4); Hematocrit 46.5 % (41-53); Hemoglobin 15.8 g/dL (13.5-17.5); Lymphocytes Absolute Auto 1900 /uL (1100-4500); Lymphocytes Percent Auto 24.7 % (25-40); Mean Corpuscular Hemoglobin 29.6 PG (26-34); Mean Corpuscular Volume 87.2 fL (80-100); Monocytes Absolute Auto 600 /uL (0-900); Monocytes Percent Auto 7.8 % (3-14); Neutrophils Absolute Auto 4900 /uL (1500-7000); Neutrophils Percent Auto 64.1 % (50-75); Platelet Count 197 X10^3/uL (150-400); Red Blood Cell Count 5.33 X10^6/uL (4.5-5.9); White Blood Cell Count 7.6 X10^3/uL (4.5-11.0)
[2018-08-09 13:42] LABS: Alanine Aminotransferase 21 IU/L (21-72); Albumin 4.7 g/dL (3.5-5.0); Albumin Globulin Ratio 1.6 (1.0-2.8); Alkaline Phosphatase 87 U/L (38-126); Aspartate Aminotransferase 24 IU/L (17-59); Bilirubin Total 0.4 mg/dL (0.2-1.3); Blood Urea Nitrogen 18 mg/dL (9-20); Carbon Dioxide 25 mmol/L (22-32); Chloride 102 mmol/L (98-107); Estimated Glomerular Filt Rate > 60.0 mL/min (>60); Glucose 104 mg/dL (80-110); HEMOLYSIS < 15 (0-50); Sodium 139 mmol/L (137-145); Total Protein 7.7 g/dL (6.3-8.2)
[2018-08-11 15:59] LABS: Alpha Fetoprotein 4.3 ng/mL (< 6.1)
== END ==
PROVIDERS: PCP Family Medicine; Visit Provider Physician Assistant
DX: K74.69 Other cirrhosis of liver (principal); B18.2 Chronic viral hepatitis C; K82.0 Obstruction of gallbladder
CPT/HCPCS: 36415; 76700; 80053; 82105; 85025

== ENCOUNTER → 2019-02-11 13:28 | Outpatient (CLI) | payer OTHER, MEDICAID, SELFPAY ==
[2017-11-15 21:49] VITALS: BMI 25.8
--- NOTE | 2019-02-11 | DI.US.S_ITS ---
PROCEDURE: US ABDOMEN COMPLETE INDICATIONS: UNSPECIFIED CIRRHOSIS OF LIVER TECHNIQUE: Real-time scanning was performed of the abdominal and retroperitoneal organs, with image documentation. COMPARISON: [facility], US, US ABDOMEN COMPLETE, 08/09/2018, 10:50. CT abdomen and pelvis 11/28/2017 FINDINGS: Liver: Normal in size. Echogenicity appears within normal limits. Gallbladder: Nondistended. Small gallstone measuring 6 mm. Gallbladder wall thickness measures 1.6 mm. No pericholecystic fluid. Negative sonographic Milton's sign. Biliary ducts: Intrahepatic bile ducts are non-dilated. Extrahepatic bile duct caliber measures 5 mm. Normal is 6-7 mm or less in diameter, or 10 mm or less post-cholecystectomy. Pancreas: Not well-seen due to overlying bowel gas. Spleen: Spleen is normal in size and homogeneous in echotexture. Measures 10.4 cm. Kidneys: Kidneys are normal in size and echotexture. Right kidney measures 11.5 cm long; left kidney measures 10.5 cm long. No hydronephrosis or nephrolithiasis. No solid masses. Right kidney simple cyst measuring 1.7 x 2.2 x 1.7 cm. Left kidney inferior pole cyst measuring 3 x 2.8 x 3.3 cm. The left kidney stone measuring 5 mm. Aorta: Visualized proximal aorta measures 2.6 cm. Iliacs are not well seen. IVC: Intrahepatic inferior vena cava is patent. Miscellaneous: No free abdominal fluid. IMPRESSION: 1. Hepatic echogenicity is within normal limits. No splenomegaly. No free fluid. 2. No acute cholecystitis. Gallstone. 3. Left kidney nonobstructing kidney stone. No hydronephrosis. Dictated by: Romel Hamilton M.D. on 02/11/2019 at 14:39 Approved by: Romel Hamilton M.D. on 02/11/2019 at 14:46
== END ==
PROVIDERS: Family Provider Nurse Practitioner Family; PCP Nurse Practitioner Family; Visit Provider Physician Assistant
DX: K74.60 Unspecified cirrhosis of liver (principal); N20.0 Calculus of kidney; K80.20 Calculus of gallbladder without cholecystitis without obstruction
CPT/HCPCS: 76700